=== PATIENT | female | born 1940 | race Caucasian/White ===

== ENCOUNTER 2016-08-02 20:21 | Inpatient (IN) | payer OTHER ==
--- NOTE | 2016-08-02 22:28 | PDOC ---
History of Present Illness <Salma Hendrickson - Last Filed: 08/03/16 02:03> - History of Present Illness Initial Comments: 08/02/16 22:51 The patient is a 76 year old female with a past medical hx of COPD, asthma, stomach ulcers, and hypercholesterolemia who presents to the ED complaining of shortness of breath for a few days. The patient reports a few days ago her symptoms started as a head cold, consisting of a cough, fatigue, chills, decrease in appetite, and congestion. She notes her cough is productive with yellow sputum. She reports her symptoms progressively worsened and now she is feeling short of breath. The patient reports her last COPD exacerbation was in September and she was admitted for one night. She reports she does not feel nearly as bad as she did during her last COPD exacerbation. She is not oxygen dependent. She had 1 episode of vomiting this morning. The patient denies chest pain, fever, sweats PCP: Dr. Ambriz <Jaimie Wright - Last Filed: 08/03/16 02:04> - General Chief Complaint: Respiratory Stated Complaint: DIFFICULTY BREATHING Time Seen by Provider: 08/02/16 20:54 Past History - Past Medical History Asthma: Yes Cancer: Yes GI Disorders: Yes (STOMACH ULCER) Hypercholesterolemia: Yes - Immunization History Immunization Up to Date: No - Psycho/Social/Smoking Cessation Hx Anxiety: (STRESS) Suicidal Ideation: No Smoking History: Former smoker Have you smoked in the past 12 months: No If you are a former smoker, when did you quit?: 30 yr Information on smoking cessation initiated: No Hx Alcohol Use: No Drug/Substance Use Hx: No Substance Use Type: None <Salma Hendrickson - Last Filed: 08/03/16 02:03> <Jaimie Wright - Last Filed: 08/03/16 02:04> - Past Medical History Allergies/Adverse Reactions: Allergies Allergy/AdvReac Type Severity Reaction Status Date / Time meperidine HCl [From Demerol] Allergy Verified 08/02/16 20:25 Home Medications: Ambulatory Orders Albuterol Sulfate Inhaler - [Ventolin HFA Inhaler -] 1 - 2 inh PO QID PRN #2 inhaler 12/08/15 Budesonide/Formeterol Fumarate [SYMBICORT 160/4.5mcg -] 1 puff IH BID #1 inhaler 12/08/15 Tiotropium [place] [Spiriva Respimat] 4 gm IH DAILY #1 mist.inhal 12/08/15 Zafirlukast 10 mg PO AM #30 tablet 12/08/15 Famotidine [Pepcid] 40 mg PO HS 08/02/16 Pravastatin Sodium 20 mg PO HS 08/02/16 Review of Systems - Review of Systems Able to Perform ROS?: Yes Comments:: 08/02/16 22:51 CONSTITUTIONAL: +Fatigue, chills, decreased appetite. Absent: fever, chills, diaphoresis, generalized weakness, malaise, loss of appetite HEENT: +Nasal congestion. Absent: rhinorrhea, throat pain, throat swelling, difficulty swallowing, mouth swelling, ear pain, eye pain, visual Changes CARDIOVASCULAR: Absent: chest pain, syncope, palpitations, irregular heart rate, lightheadedness , peripheral edema RESPIRATORY: +Shortness of breath, cough. Absent: cough, dyspnea with exertion, orthopnea, wheezing, stridor, hemoptysis GASTROINTESTINAL: Absent: abdominal pain, abdominal distension, nausea, vomiting, diarrhea, constipation, melena, hematochezia GENITOURINARY: Absent: dysuria, frequency, urgency, hesitancy, hematuria, flank pain, genital pain MUSCULOSKELETAL: Absent: myalgia, arthralgia, joint swelling SKIN: Absent: rash, itching, pallor NEUROLOGIC: Absent: headache, focal weakness or paresthesias, dizziness, unsteady gait, seizure, mental status changes, bladder or bowel incontinence PSYCHIATRIC: Absent: anxiety, depression, suicidal or homicidal ideation, hallucinations. <Jaimie Wright - Last Filed: 08/03/16 02:04> *Physical Exam - Vital Signs Last Vital Signs Temp Pulse Resp BP Pulse Ox 98.0 F 68 20 134/72 97 08/02/16 20:26 08/02/16 22:24 08/02/16 22:24 08/02/16 22:24 08/02/16 22:24 <Salma Hendrickson - Last Filed: 08/03/16 02:03> - Vital Signs Last Vital Signs Temp Pulse Resp BP Pulse Ox 98.0 F 68 20 134/72 97 08/02/16 20:26 08/02/16 22:24 08/02/16 22:24 08/02/16 22:24 08/02/16 22:24 - Physical Exam Comments: 08/02/16 22:51 GENERAL: Well developed, well nourished. Awake and alert. No acute distress. HEENT: Normocephalic, atraumatic. PERRLA, EOMI. No conjunctival pallor. Sclera are non- icteric. Moist mucous membranes. Oropharynx is clear. NECK: Supple. Full ROM. No JVD. Carotid pulses 2+ and symmetric, without bruits. No thyromegaly. No lymphadenopathy. CARDIOVASCULAR: Regular rate and rhythm. No murmurs, rubs, or gallops. Distal pulses are 2+ and symmetric. PULMONARY: +Scattered wheezing, hypoxic. No rales or rhonchi. ABDOMINAL: Soft. Non-tender. Non-distended. No rebound or guarding. No organomegaly. Normoactive bowel sounds. MUSCULOSKELETAL Normal range of motion at all joints. No bony deformities or tenderness. No CVA tenderness. EXTREMITIES: No cyanosis. No clubbing. No edema. No calf tenderness. SKIN: Warm and dry. Normal capillary refill. No rashes. No jaundice. NEUROLOGICAL: Alert, awake, appropriate. Cranial nerves 2-12 intact. No deficits to light touch and temperature in face, upper extremities and lower extremities. No motor deficits in the in face, upper extremities and lower extremities. PSYCHIATRIC: Cooperative. Good eye contact. Appropriate mood and affect. <Jaimie Wright - Last Filed: 08/03/16 02:04> Heart Score/ECG Review - ECG Impressions Comment:: 08/03/16 00:[address] Hendrickson Atrial-paced rhythm Rate of 67 bpm <Jaimie Wright - Last Filed: 08/03/16 02:04> ED Treatment Course - LABORATORY CBC & Chemistry Diagram: 08/02/16 23:10 08/02/16 23:10 - RADIOLOGY Radiology Studies Ordered: Category Date Time Status CHEST X-RAY PORTABLE* [RAD] Stat Radiology 08/02/16 20:50 Taken <Salma Hendrickson - Last Filed: 08/03/16 02:03> - LABORATORY CBC & Chemistry Diagram: 08/02/16 23:10 08/02/16 23:10 <Jaimie Wright - Last Filed: 08/03/16 02:04> *DC/Admit/Observation/Transfer - Discharge Dispostion Admit: Yes <Salma Hendrickson - Last Filed: 08/03/16 02:03> - Attestations Scribe Attestion: 08/02/16 22:51 Documentation prepared by Jaimie Wright, acting as manager medical affairs for Salma Hendrickson MD/DO. <Jaimie Wright - Last Filed: 08/03/16 02:04> Diagnosis at time of Disposition: Exacerbation of asthma, Hypoxia, Cough - Referrals Referrals: Bandar Ambriz MD [Primary Care Provider] -
[2016-08-02] MEDS ORDERED: ALBUTEROL SO4 2.5/IPRATROPIUM 0.5 INH SOL 3 ML VIAL.NEB. NEB ONE ×2 (22:29→22:39)
[2016-08-02] MEDS ORDERED: methylPREDNISolone NA SUCC 125 MG/2 ML VIAL IVPB ONE (22:29)
[2016-08-02] MEDS ORDERED: ALBUTEROL SO4 0.083% IH SOL 2.5 MG/3 ML VIAL.NEB. NEB ONE ×2 (22:29→22:38)
[2016-08-02] MEDS ORDERED: methylPREDNISolone NA SUCC 125 MG/2 ML VIAL ONE (22:39)
[2016-08-02 23:37] LABS: BASOPHIL 0.5 % (0-2.0); EOSINOPHIL 0.4 % (0-4.5); MCH 31.2 pg (25.7-33.7); MCHC 33.8 g/dl (32.0-36.0); MEAN CELL VOLUME 92.4 fl (80-96); NEUTROPHILS 71.3 % (42.8-82.8); PLATELET COUNT 164 K/MM3 (134-434); RDW 14.2 % (11.6-15.6); WHITE BLOOD COUNT 10.5 K/mm3 (4.0-10.0)
[2016-08-03 00:17] LABS: INR 1.13 (0.82-1.09); PROTHROMBIN TIME (PATIENT) 12.5 SEC (9.98-11.88)
[2016-08-03 00:30] LABS: ALBUMIN 3.7 g/dl (3.4-5.0); ANION GAP 13 (8-16); BILIRUBIN,TOTAL 0.6 mg/dL (0.2-1.0); CO2 28 mmol/L (21-32); CREATININE 0.9 mg/dL (0.55-1.02); GLUCOSE,RANDOM 94 mg/dL (74-106); SGOT/AST 32 U/L (15-37); SGPT/ALT 46 U/L (12-78); TOT PROT 7.2 g/dl (6.4-8.2)
[2016-08-03 00:33] LABS: ALK PHOS 108 U/L (45-117)
[2016-08-03 00:41] LABS: TROPONIN I < 0.02 ng/ml (0.00-0.05)
[2016-08-03] MEDS ORDERED: ALBUTEROL SO4 2.5/IPRATROPIUM 0.5 INH SOL 3 ML VIAL.NEB. NEB ONE ×3 (01:50→02:41)
[2016-08-03] MEDS ORDERED: AZITHROMYCIN IVPB 500 MG in DEXTROSE 5%-WATER - 250 ML IVPB ONE (01:52)
[2016-08-03 02:02] LABS: ALBUMIN 3.5 g/dl (3.4-5.0); ANION GAP 12 (8-16); BILIRUBIN,TOTAL 0.8 mg/dL (0.2-1.0); CALCIUM 8.6 mg/dL (8.5-10.1); CO2 27 mmol/L (21-32); CREATININE 0.9 mg/dL (0.55-1.02); GLUCOSE,RANDOM 135 mg/dL (74-106); SGOT/AST 25 U/L (15-37); SGPT/ALT 43 U/L (12-78); TOT PROT 6.7 g/dl (6.4-8.2)
[2016-08-03 02:03] LABS: ALK PHOS 99 U/L (45-117)
[2016-08-03] MEDS ORDERED: AZITHROMYCIN IVPB 250 ML IVPB ONE (02:41)
--- NOTE | 2016-08-03 05:41 | HP ---
CHIEF COMPLAINT: cold-like symptoms PCP: Dr. Ambriz HISTORY OF PRESENT ILLNESS: 76 y/o F w/PMH of COPD, asthma, stomach ulcers, HLD, cancer presents to the ER because her daughter felt like the pt was not breathing well. Pt reports cold like symptoms over the last week that were slowly improving. She had cough with yellow sputum production and congestion in her nose. She took mucinex which helped and she remained active throughout the week including dancing and doing community work. She felt that she was very sluggish today and states she's been having chills since earlier this week. She denies any SOB to me and she also denies CP, abd pain, dysuria, fevers, palpitations, loss of consciousness, diarrhea, constipation. She denies using her rescue inhaler more than usual and takes her medications as prescribed. Pt's O2 was removed at 3:45 am and she continued to saturate at 91-94%. ER course was notable for: (1) solumedrol, duo-nebs x3, azithromycin (2) (3) PAST MEDICAL HISTORY: COPD, asthma, stomach ulcers, HLD, cancer (56 years ago in her R leg near knee, cannot remember the type) PAST SURGICAL HISTORY: R knee replacement 56 years ago due to cancer Social History: Smoking: former smoker, quit 40 years ago, smoked 1ppd for 10-15 years Alcohol: rare Drugs: denies Family History: Father:Angina; Skin cancer throughout family Allergies meperidine HCl [From Demerol] Allergy (Verified 08/02/16 20:25) HOME MEDICATIONS: Home Medications Medication Instructions Recorded Albuterol Sulfate Inhaler - 1 - 2 inh PO QID PRN #2 inhaler 12/08/15 [Ventolin HFA Inhaler -] Budesonide/Formeterol Fumarate 1 puff IH BID #1 inhaler 12/08/15 [SYMBICORT 160/4.5mcg -] Tiotropium [place] [Spiriva 4 gm IH DAILY #1 mist.inhal 12/08/15 Respimat] Zafirlukast 10 mg PO AM #30 tablet 12/08/15 Famotidine [Pepcid] 40 mg PO HS 08/02/16 Pravastatin Sodium 20 mg PO HS 08/02/16 REVIEW OF SYSTEMS CONSTITUTIONAL: chills, generalized weakness Absent: fever, diaphoresis, malaise, loss of appetite, weight change HEENT: nasal congestion Absent: rhinorrhea, throat pain, throat swelling, difficulty swallowing, mouth swelling, ear pain, eye pain, visual changes CARDIOVASCULAR: Absent: chest pain, syncope, palpitations, irregular heart rate, lightheadedness , peripheral edema RESPIRATORY: cough Absent: shortness of breath, dyspnea with exertion, orthopnea, wheezing, stridor , hemoptysis GASTROINTESTINAL: Absent: abdominal pain, abdominal distension, nausea, vomiting, diarrhea, constipation, melena, hematochezia GENITOURINARY: Absent: dysuria, frequency, urgency, hesitancy, hematuria, flank pain, genital pain MUSCULOSKELETAL: Absent: myalgia, arthralgia, joint swelling, back pain, neck pain SKIN: Absent: rash, itching, pallor HEMATOLOGIC/IMMUNOLOGIC: Absent: easy bleeding, easy bruising, lymphadenopathy, frequent infections ENDOCRINE: Absent: unexplained weight gain, unexplained weight loss, heat intolerance, cold intolerance NEUROLOGIC: Absent: headache, focal weakness or paresthesias, dizziness, unsteady gait, seizure, mental status changes, bladder or bowel incontinence PSYCHIATRIC: Absent: anxiety, depression, suicidal or homicidal ideation, hallucinations. Vital Signs Temperature 98.0 F 08/02/16 20:26 Pulse Rate 68 08/02/16 22:24 Respiratory Rate 20 08/02/16 22:24 Blood Pressure 134/72 08/02/16 22:24 O2 Sat by Pulse Oximetry (%) 97 08/02/16 22:24 PHYSICAL EXAMINATION GENERAL: Awake, alert, and fully oriented, in no acute distress. HEAD: Normal with no signs of trauma. EYES: extraocular movements intact, sclera anicteric, conjunctiva clear. No lid lag. EARS, NOSE, THROAT: Ears normal, nares patent, Moist mucous membranes. NECK: Normal range of motion LUNGS: mild wheezing on R lung HEART: some dropped beats, normal S1 and S2 without murmur, rub or gallop. ABDOMEN: Soft, nontender, not distended, normoactive bowel sounds, no guarding, no rebound, no masses. No hepatomegaly or splenomegaly. MUSCULOSKELETAL: Normal range of motion at all joints. No bony deformities or tenderness. No CVA tenderness. UPPER EXTREMITIES: 2+ pulses, warm, well-perfused. No cyanosis. No clubbing. No peripheral edema. LOWER EXTREMITIES: 2+ pulses, warm, well-perfused. No calf tenderness. No peripheral edema. NEUROLOGICAL: Cranial nerves II-XII intact. Normal speech. Normal gait. PSYCHIATRIC: Cooperative. Good eye contact. Appropriate mood and affect. SKIN: Warm, dry, normal turgor, no rashes or lesions noted, normal capillary refill. CBCD WBC 10.5 K/mm3 (4.0-10.0) H D 08/02/16 23:10 RBC 4.86 M/mm3 (3.60-5.2) 08/02/16 23:10 Hgb 15.1 GM/dL (10.7-15.3) 08/02/16 23:10 Hct 44.9 % (32.4-45.2) 08/02/16 23:10 MCV 92.4 fl (80-96) 08/02/16 23:10 MCHC 33.8 g/dl (32.0-36.0) 08/02/16 23:10 RDW 14.2 % (11.6-15.6) 08/02/16 23:10 Plt Count 164 K/MM3 (134-434) 08/02/16 23:10 MPV 10.0 fl (7.5-11.1) 08/02/16 23:10 CMP Sodium 136 mmol/L (136-145) 08/03/16 01:00 Potassium 4.1 mmol/L (3.5-5.1) 08/03/16 01:00 Chloride 97 mmol/L (98-107) L 08/03/16 01:00 Carbon Dioxide 27 mmol/L (21-32) 08/03/16 01:00 Anion Gap 12 (8-16) 08/03/16 01:00 BUN 11 mg/dL (7-18) 08/03/16 01:00 Creatinine 0.9 mg/dL (0.55-1.02) 08/03/16 01:00 Creat Clearance w eGFR > 60 (>60) 08/03/16 01:00 Random Glucose 135 mg/dL (74-106) H D 08/03/16 01:00 Calcium 8.6 mg/dL (8.5-10.1) 08/03/16 01:00 Total Bilirubin 0.8 mg/dL (0.2-1.0) D 08/03/16 01:00 AST 25 U/L (15-37) D 08/03/16 01:00 ALT 43 U/L (12-78) 08/03/16 01:00 Alkaline Phosphatase 99 U/L (45-117) 08/03/16 01:00 Total Protein 6.7 g/dl (6.4-8.2) 08/03/16 01:00 Albumin 3.5 g/dl (3.4-5.0) 08/03/16 01:00 CARDIAC ENZYMES Creatine Kinase 77 IU/L (26-192) 08/02/16 22:52 Troponin I < 0.02 ng/ml (0.00-0.05) 08/02/16 22:52 Imaging: CXR: no acute pathology noted. Active Medications Albuterol/Ipratropium (Duoneb -) 1 amp NEB Q4H PRN PRN Reason: SHORTNESS OF BREATH Budesonide/Formoterol Fumarate (Symbicort 160/4.5mcg -) 1 puff IH BID PAULA Methylprednisolone Sodium Succinate (Solu-Medrol -) 60 mg IVPB ONCE ONE Stop: 08/03/16 06:01 Non-Formulary Medication (Famotidine [Pepcid]) 40 mg PO HS PAULA Non-Formulary Medication (Pravastatin Sodium [Pravastatin Sodium]) 20 mg PO HS PAULA Non-Formulary Medication (Zafirlukast [Zafirlukast]) 10 mg PO AM [facility] ASSESSMENT/PLAN: 76 y/o F w/PMH of COPD, asthma, stomach ulcers, HLD, cancer presents to the ER with shortness of breath. Monitor in obs for COPD exacerbation. -COPD exacerbation, hypoxia -received 125 solumedrol, duo-nebs x3, azithro x1 in ER -one dose of solumedrol 60 mg in AM -duonebs q4h prn -no abx for now; flu negative -pulm consult - Dr. Ambriz -pt is clinically improved after solumedrol -c/w home meds -hypoxia resolved after duonebs and solumedrol in ed -Leukocytosis -Likely reactive to COPD exacerbation, no signs of infection currently -Asthma -c/w zafirlukast -Stomach ulcers -c/w pepcid 40 mg po qhs -HLD -c/w pravastatin 20 mg po qhs -DVT ppx -SCDs -FEN -No fluids -Electrolytes: hypochloremia, continue to monitor, improving -Regular diet -Dispo: -Monitor in obs Problem List - Problem (1) Acute exacerbation of COPD with asthma Code(s): J44.1 - CHRONIC OBSTRUCTIVE PULMONARY DISEASE W (ACUTE) EXACERBATION J45.901 - UNSPECIFIED ASTHMA WITH (ACUTE) EXACERBATION (2) Cough Code(s): R05 - COUGH (3) Exacerbation of asthma Code(s): J45.901 - UNSPECIFIED ASTHMA WITH (ACUTE) EXACERBATION (4) Hypoxia Code(s): R09.02 - HYPOXEMIA Visit type - Emergency Visit Emergency Visit: Yes ED Registration Date: 08/03/16 Care time: The patient presented to the Emergency Department on the above date and was hospitalized for further evaluation of their emergent condition. - New Patient This patient is new to me today: Yes Date on this admission: 08/03/16 - Critical Care Critical Care patient: No
[2016-08-03] MEDS ORDERED: ALBUTEROL SO4 2.5/IPRATROPIUM 0.5 INH SOL 3 ML VIAL.NEB. NEB PRN (05:51)
--- NOTE | 2016-08-03 05:54 | PN ---
<Thomas Campbell - Last Filed: 08/03/16 06:26> Teaching Attending Note ATTENDING PHYSICIAN STATEMENT I saw and evaluated the patient. I reviewed the resident's note and discussed the case with the resident. I agree with the resident's findings and plan as documented. SUBJECTIVE: The patient is a 76 year old female with a past medical history of COPD, asthma , stomach ulcers, and hypercholesterolemia who presented to the Emergency Department for further evaluation of shortness of breath for a few days. The patient reported that, a few days ago her symptoms started as a head cold, productive cough with yellow sputum, fatigue, chills, decrease in appetite, and congestion. She noted her cough is productive with yellow-green sputum. She stated her symptoms progressively worsened and she began feeling short of breath. The patient reported her last COPD exacerbation was in September 2015 and she was admitted for one night. She noted that she does not feel nearly as bad as she did during her last COPD exacerbation. She is not oxygen dependent. She had 1 episode of vomiting this morning. The patient denied chest pain, fever, sweats. PCP: Dr. Ambriz PAST MEDICAL HISTORY: COPD, asthma, stomach ulcers, hypercholesterolemia PAST SURGICAL HISTORY: No significant history reported FAMILY HISTORY: No pertinent history reported SOCIAL HISTORY: Former smoker 1ppd for 10 years (quit 40 years ago) MEDICATIONS: Reviewed ALLERGIES: As per nursing notes OBJECTIVE: Vital Signs: Last Vital Signs Temp Pulse Resp BP Pulse Ox 98.0 F 68 20 134/72 97 08/02/16 20:26 08/02/16 22:24 08/02/16 22:24 08/02/16 22:24 08/02/16 22:24 Physical Exam: GENERAL: Awake, alert, and fully oriented, in no acute distress HEENT: Atraumatic. PERRLA, EOMI. Moist mucosa. No JVD LUNGS: (+) mild wheezing right lower lung. No distress, speaks full sentences, clear to auscultation bilaterally HEART: Regular rate irregular rhythm, normal S1 and S2, no murmurs, rubs or gallops, peripheral pulses normal and equal bilaterally. ABDOMEN: Soft, nontender, normoactive bowel sounds. No guarding, no rebound. No masses EXTREMITIES: Normal inspection, Normal range of motion, no edema. No clubbing or cyanosis. NEUROLOGICAL: Cranial nerves II through XII grossly intact. Normal speech, normal gait, no focal sensorimotor deficits SKIN: Warm, Dry, normal turgor, no rashes or lesions noted. Labs: CBCD WBC 10.5 K/mm3 (4.0-10.0) H D 08/02/16 23:10 RBC 4.86 M/mm3 (3.60-5.2) 08/02/16 23:10 Hgb 15.1 GM/dL (10.7-15.3) 08/02/16 23:10 Hct 44.9 % (32.4-45.2) 08/02/16 23:10 MCV 92.4 fl (80-96) 08/02/16 23:10 MCHC 33.8 g/dl (32.0-36.0) 08/02/16 23:10 RDW 14.2 % (11.6-15.6) 08/02/16 23:10 Plt Count 164 K/MM3 (134-434) 08/02/16 23:10 MPV 10.0 fl (7.5-11.1) 08/02/16 23:10 CMP Sodium 136 mmol/L (136-145) 08/03/16 01:00 Potassium 4.1 mmol/L (3.5-5.1) 08/03/16 01:00 Chloride 97 mmol/L (98-107) L 08/03/16 01:00 Carbon Dioxide 27 mmol/L (21-32) 08/03/16 01:00 Anion Gap 12 (8-16) 08/03/16 01:00 BUN 11 mg/dL (7-18) 08/03/16 01:00 Creatinine 0.9 mg/dL (0.55-1.02) 08/03/16 01:00 Creat Clearance w eGFR > 60 (>60) 08/03/16 01:00 Calcium 8.6 mg/dL (8.5-10.1) 08/03/16 01:00 Total Bilirubin 0.8 mg/dL (0.2-1.0) D 08/03/16 01:00 AST 25 U/L (15-37) D 08/03/16 01:00 ALT 43 U/L (12-78) 08/03/16 01:00 Alkaline Phosphatase 99 U/L (45-117) 08/03/16 01:00 Total Protein 6.7 g/dl (6.4-8.2) 08/03/16 01:00 Albumin 3.5 g/dl (3.4-5.0) 08/03/16 01:00 Imaging: Chest X-ray Impression: No official read. No acute findings. ASSESSMENT AND PLAN: The patient is a 76 year old female with a past medical history of COPD, asthma , stomach ulcers, and hypercholesterolemia who presented to the Emergency Department for further evaluation of shortness of breath for a few days. 1. Acute exacerbation of asthma/COPD -IV solumedrol 60 mg in AM -Duoneb Q4 PRN -Zithromax 500 mg in ED -Pulmonary consult Admit to observation. Documentation prepared by Thomas Campbell, acting as medical secretary teacher for Dr. Toñito Christina MD. <Toñito Christina - Last Filed: 08/03/16 06:44> Teaching Attending Note Name of Resident: Theron Heath ATTENDING PHYSICIAN STATEMENT I saw and evaluated the patient. I reviewed the resident's note and discussed the case with the resident. I agree with the resident's findings and plan as documented.
[2016-08-03] MEDS ORDERED: methylPREDNISolone NA SUCC 40 MG/1 ML VIAL IVPB ONE (06:00)
[2016-08-03] MEDS ORDERED: HYDROCORTISONE SOD SUCCINATE 2 ML ONE (07:07)
[2016-08-03] MEDS: ZAFIRLUKAST 10 MG PO SCH (07:08)
[2016-08-03 08:38] LABS: BASOPHIL 0.2 % (0-2.0); MCH 30.6 pg (25.7-33.7); MCHC 33.4 g/dl (32.0-36.0); MEAN CELL VOLUME 91.7 fl (80-96); PLATELET COUNT 142 K/MM3 (134-434); RDW 14.1 % (11.6-15.6); WHITE BLOOD COUNT 9.5 K/mm3 (4.0-10.0)
[2016-08-03 09:06] LABS: CALCIUM 8.4 mg/dL (8.5-10.1); CREATININE 1.2 mg/dL (0.55-1.02)
[2016-08-03 09:59] VITALS: BMI 34.0
[2016-08-03] MEDS ORDERED: SODIUM CHLORIDE 1,000 ML IV SCH (11:00)
[2016-08-03] MEDS: BUDESONIDE/FORMETEROL FUMARATE 160/4.5 mcg INHALER IH SCH ×2 (11:49→22:56)
--- NOTE | 2016-08-03 13:24 | EKG ---
Test Reason : Blood Pressure : / mmHG Vent. Rate : 067 BPM Atrial Rate : 067 BPM P-R Int : 174 ms QRS Dur : 090 ms QT Int : 396 ms P-R-T Axes : 033 -16 034 degrees QTc Int : 418 ms POOR DATA QUALITY, INTERPRETATION MAY BE ADVERSELY AFFECTED Atrial-paced rhythm MINIMAL VOLTAGE CRITERIA FOR LVH, MAY BE NORMAL VARIANT ABNORMAL ECG WHEN COMPARED WITH ECG OF 07-DEC-2015 21:17, NO SIGNIFICANT CHANGE WAS FOUND Confirmed by ANUPAM CAGLE MD ([id number]) on 08/03/2016 1:23:59 PM Referred By: Confirmed By:ANUPAM CAGLE MD
--- NOTE | 2016-08-03 14:35 | PN ---
Physical Exam: SUBJECTIVE: Patient seen and examined. She denies chest pain. Still feels short of breath with minimal exertion. OBJECTIVE: accessory muscle use, on 2 liter of nasal cannula expiratory wheezing on bilateral lung talbot appears weak Vital Signs Period Temp Pulse Resp BP Sys/Muse Pulse Ox Last 24 Hr 98.5 F-98.9 F 64-88 17-22 115-127/54-71 96-97 GENERAL: The patient is awake, alert, and fully oriented, in mild respiratory distress secondary to acute exacb. HEAD: Normal with no signs of trauma. EYES: PERRL, extraocular movements intact, sclera anicteric, conjunctiva clear. No ptosis. ENT: Ears normal, nares patent, oropharynx clear without exudates, moist mucous membranes. NECK: Trachea midline, full range of motion, supple. LUNGS: accessory muscle use, expiratory wheezing on bilateral lung talbot HEART: Regular rate and rhythm, S1, S2 without murmur, rub or gallop. ABDOMEN: Soft, nontender, nondistended, normoactive bowel sounds, no guarding, no rebound, no hepatosplenomegaly, no masses. EXTREMITIES: 2+ pulses, warm, well-perfused, no edema. NEUROLOGICAL: Cranial nerves II through XII grossly intact. Normal speech, gait not observed. PSYCH: Normal mood, normal affect. SKIN: Warm, dry, normal turgor, no rashes or lesions noted Laboratory Results - last 24 hr 08/03/16 08/03/16 08:24 08:24 WBC 9.5 RBC 4.42 Hgb 13.5 D Hct 40.5 MCV 91.7 MCHC 33.4 RDW 14.1 Plt Count 142 MPV 9.0 Neutrophils % 91.0 H D Lymphocytes % 6.0 L D Monocytes % 2.8 L Eosinophils % 0.0 D Basophils % 0.2 Sodium 130 L Potassium 4.0 Chloride 94 L Carbon Dioxide 22 Anion Gap 14 BUN 14 D Creatinine 1.2 H D Random Glucose 192 H D Calcium 8.4 L Active Medications Generic Name Dose Route Start Last Admin Trade Name Freq PRN Reason Stop Dose Admin Albuterol/Ipratropium 1 amp 08/03/16 05:51 Duoneb - NEB Q4H PRN SHORTNESS OF BREATH Atorvastatin Calcium 10 mg 08/03/16 22:00 Lipitor - PO HS PAULA Budesonide/Formoterol Fumarate 1 puff 08/03/16 10:00 08/03/16 11:49 Symbicort 160/4.5mcg - IH 1 inh BID PAULA Administration Sodium Chloride 1,000 mls @ 50 mls/hr 08/03/16 11:00 08/03/16 11:57 Normal Saline - IV 08/04/16 10:48 50 mls/hr ASDIR PAULA Administration Non-Formulary Medication 10 mg 08/03/16 07:00 08/03/16 07:08 Zafirlukast [Zafirlukast] PO 10 mg AM PAULA Administration Ranitidine HCl 300 mg 08/03/16 22:00 Zantac - PO HS PAULA ASSESSMENT/PLAN: Patient is a 76 year old female with a significant past medical history of COPD , asthma, stomach ulcers, hypercholesterolemia. She presents to the ED on 2016 complaining of shortness of breath with any exertion that progressively worsened. she also reports a productive cought with yellow sputum. As per the patient, her last COPD exacerbation was in September 2015. She is not home oxygen dependent. The patient denies chest pain, fever, sweats, n/v/d. She stats she feels weak. Imaging: Chest Xray 08/02/2016 - Apical lordotic projection, clear lungs, normal mediastinum, double lead PM and no signs of acute proceses Pulmonary: COPD/Asthma exacerbation with hypoxia - acute on chronic Assessment/Plan: In ED she received Solumedrol 125mg x 1, duonebs x 3 and Azithromycin Now on solumedrol 40mg q6 On albuterol/Ipra duonebs q4 scheduled On Azithromycin and Rocephin On 3 liters of oxygen On Symbicort and Zafirlukast Some wheezing on my exam, Solumedrol ordered by pulmonary Incentive spirometer Pulmonary consult with Dr. Ambriz Hematology: Leukocytosis - resolved Assessment/Plan: monitor GI: Stomach Ulcers Assessment/Plan: will start on protonix while on steroids F.E.N. Fluids: NS @ 50cc/hr x 1 liter for hyponatremia Electrolytes: hyponatremia Nutrition: regular diet DVT: SCDs, ambulation GI: Protonix disposition: Pre and post oxygen respiratory read prior to discharge. Full Code. Visit type - Emergency Visit Emergency Visit: Yes ED Registration Date: 08/03/16 Care time: The patient presented to the Emergency Department on the above date and was hospitalized for further evaluation of their emergent condition. - New Patient This patient is new to me today: Yes Date on this admission: 08/03/16 - Critical Care Critical Care patient: No - Discharge Referral Referred to [facility] No
--- NOTE | 2016-08-03 14:46 | CON.PULM ---
Consult Consult Specialty:: PULMONARY Referred by:: BENNY Reason for Consultation:: COUGH/WHEEZE/SOB - History of Present Illness Chief Complaint: COUGH/WHEEZE/SOB History of Present Illness: 76 FEMALE WELL KNOWN BY ME. H/O COPD/PUD/HPL PRESENTS TO ER WITH COUGH/SOB/WHEEZE/FEVER AND LETHARGY.PATIENT STATES SHE WAS AT [employer] AND DIDNT FEEL WELL. AFTER MASS SHE WENT HOME AND BECAME LETHARGIC AND DECIDED TO COME TO ER. - History Source History Provided By: Patient, Medical Record Limitations to Obtaining History: No Limitations - Past Medical History CHILD CARE DIRECTOR: No: Alzheimer's Cardio/Vascular: No: AFIB Pulmonary: Yes: Asthma, COPD. No: O2 Dependent Gastrointestinal: No: Ascites Hepatobiliary: No: Cirrhosis Renal/: No: Renal Failure Reproductive: Yes: Postmenopausal Heme/Onc: No: Anemia Infectious Disease: No: AIDS Psych: No: Addictions Musculoskeletal: No: Bursitis Rheumatology: No: Fibromyalgia - Alcohol/Substance Use Hx Alcohol Use: No - Smoking History Smoking history: Former smoker Have you smoked in the past 12 months: No If you are a former smoker, when did you quit?: 30 yr Home Medications - Allergies Allergies/Adverse Reactions: Allergies Allergy/AdvReac Type Severity Reaction Status Date / Time meperidine HCl [From Demerol] Allergy Verified 08/02/16 20:25 - Home Medications Home Medications: Ambulatory Orders Albuterol Sulfate Inhaler - [Ventolin HFA Inhaler -] 1 - 2 inh PO QID PRN #2 inhaler 12/08/15 Budesonide/Formeterol Fumarate [SYMBICORT 160/4.5mcg -] 1 puff IH BID #1 inhaler 12/08/15 Tiotropium [place] [Spiriva Respimat] 4 gm IH DAILY #1 mist.inhal 12/08/15 Zafirlukast 10 mg PO AM #30 tablet 12/08/15 Famotidine [Pepcid] 40 mg PO HS 08/02/16 Pravastatin Sodium 20 mg PO HS 08/02/16 Family Disease History - Family Disease History Family History: Unremarkable Review of Systems - Review of Systems Cardiovascular: denies: Chest Pain Respiratory: reports: Cough, Exercise Intolerance, SOB on Exertion, Wheezing. denies: Hemoptysis, Orthopnea Gastrointestinal: reports: No Symptoms Genitourinary: reports: No Symptoms Physical Exam Vital Sings: Vital Signs Temperature 98.5 F 08/03/16 13:45 Pulse Rate 78 08/03/16 13:45 Respiratory Rate 22 08/03/16 13:45 Blood Pressure 115/54 08/03/16 13:45 O2 Sat by Pulse Oximetry (%) 96 08/03/16 09:46 Constitutional: Yes: Calm Eyes: Yes: EOM Intact HENT: Yes: Normocephalic Neck: Yes: Trachea Midline Cardiovascular: Yes: Regular Rate and Rhythm Respiratory: Yes: Rales, Rhonchi, Wheezes Gastrointestinal: Yes: Normal Bowel Sounds Edema: No Neurological: Yes: Alert Labs: CBC, BMP 08/03/16 08:24 08/03/16 08:24 REST REVIEWED Imaging - Results Chest X-ray: Image Reviewed Assessment/Plan LIKELY ACUTE ASTHMATIC BRONCHITIS COPD PUD HPL WILL START MEDROL Q6 ANTIBIOTICS ICS/LABA NEO/ANTICHOLINERGIC DAILY PEAK FLOW/O2 SUPPLEMENTATION WILL FOLLOW THANK YOU Luiz BAILEY MD
[2016-08-03] MEDS: methylPREDNISolone NA SUCC 40 MG/1 ML VIAL IVPB SCH ×2 (16:58→22:56)
[2016-08-03] MEDS: CEFTRIAXONE 50 ML IVPB SCH (16:58)
[2016-08-03] MEDS: PANTOPRAZOLE 40 MG TABLET (FP) PO SCH (16:58)
[2016-08-03] MEDS: ALBUTEROL SO4 2.5/IPRATROPIUM 0.5 INH SOL 3 ML VIAL.NEB. NEB SCH ×2 (18:39→22:35)
[2016-08-03] MEDS ORDERED: PT OWN MED DRAWER 7, Y5N ONE (19:13)
[2016-08-03] MEDS ORDERED: RANITIDINE HCL 150 MG TABLET (FP) PO SCH (22:00)
[2016-08-03] MEDS: ATORVASTATIN CA 10 MG TABLET (FP) PO SCH (22:54)
[2016-08-04] MEDS: methylPREDNISolone NA SUCC 40 MG/1 ML VIAL IVPB SCH ×4 (02:51→22:26)
[2016-08-04] MEDS: ALBUTEROL SO4 2.5/IPRATROPIUM 0.5 INH SOL 3 ML VIAL.NEB. NEB SCH ×5 (07:06→22:37)
[2016-08-04 08:06] LABS: BASOPHIL 0.2 % (0-2.0); MCH 30.6 pg (25.7-33.7); MCHC 33.4 g/dl (32.0-36.0); MEAN CELL VOLUME 91.5 fl (80-96); NEUTROPHILS 88.7 % (42.8-82.8); PLATELET COUNT 142 K/MM3 (134-434); RDW 13.9 % (11.6-15.6); WHITE BLOOD COUNT 15.4 K/mm3 (4.0-10.0)
[2016-08-04 08:45] LABS: ALBUMIN 3.3 g/dl (3.4-5.0); ALK PHOS 84 U/L (45-117); ANION GAP 11 (8-16); BILIRUBIN,TOTAL 0.4 mg/dL (0.2-1.0); CALCIUM 9.1 mg/dL (8.5-10.1); CO2 26 mmol/L (21-32); CREATININE 0.8 mg/dL (0.55-1.02); GLUCOSE,RANDOM 143 mg/dL (74-106); MAGNESIUM 2.3 mg/dL (1.8-2.4); PHOSPHOROUS 3.2 mg/dL (2.5-4.9); SGOT/AST 32 U/L (15-37); SGPT/ALT 47 U/L (12-78); TOT PROT 6.5 g/dl (6.4-8.2)
[2016-08-04] MEDS: PANTOPRAZOLE 40 MG TABLET (FP) PO SCH (10:09)
[2016-08-04] MEDS: BUDESONIDE/FORMETEROL FUMARATE 160/4.5 mcg INHALER IH SCH ×2 (10:30→22:26)
[2016-08-04] MEDS: CEFTRIAXONE 50 ML IVPB SCH (10:30)
[2016-08-04] MEDS: AZITHROMYCIN IVPB 250 ML IVPB SCH (11:10)
--- NOTE | 2016-08-04 11:21 | PN ---
Physical Exam: SUBJECTIVE: Patient seen and examined. States she is feeling "shaky" which she thinks is due to the steroids. Has not been overly SOB, but does use supplemental oxygen intermittently. Feels throat is very dry and hoarse. OBJECTIVE: Vital Signs Period Temp Pulse Resp BP Sys/Muse Pulse Ox Last 24 Hr 98.1 F-98.5 F 60-81 16-22 112-126/54-69 96-96 GENERAL: The patient is awake, alert, and fully oriented, in mild distress. Appears tremulous. HEAD: Normal with no signs of trauma. EYES: PERRL, extraocular movements intact, sclera anicteric, conjunctiva clear. No ptosis. ENT: Ears normal, nares patent, oropharynx clear without exudates, moist mucous membranes. Hoarse voice. NECK: Trachea midline, full range of motion, supple. LUNGS: Breath sounds equal. Scattered wheezes and crackles throughout. HEART: Regular rate and rhythm, S1, S2 without murmur, rub or gallop. ABDOMEN: Soft, nontender, nondistended, normoactive bowel sounds, no guarding, no rebound, no hepatosplenomegaly, no masses. EXTREMITIES: 2+ pulses, warm, well-perfused, no edema. NEUROLOGICAL: Cranial nerves II through XII grossly intact. Normal speech, gait not observed. PSYCH: Normal mood, normal affect. SKIN: Warm, dry, normal turgor, no rashes or lesions noted Laboratory Results - last 24 hr 08/04/16 08/04/16 05:33 05:33 WBC 15.4 H D RBC 4.16 Hgb 12.7 Hct 38.0 MCV 91.5 MCHC 33.4 RDW 13.9 Plt Count 142 MPV 10.0 D Neutrophils % 88.7 H Lymphocytes % 6.5 L Monocytes % 4.6 Eosinophils % 0.0 Basophils % 0.2 Sodium 136 Potassium 4.9 D Chloride 99 Carbon Dioxide 26 Anion Gap 11 BUN 15 Creatinine 0.8 D Creat Clearance w eGFR > 60 Random Glucose 143 H D Calcium 9.1 Phosphorus 3.2 Magnesium 2.3 Total Bilirubin 0.4 D AST 32 D ALT 47 Alkaline Phosphatase 84 Total Protein 6.5 Albumin 3.3 L Active Medications Generic Name Dose Route Start Last Admin Trade Name Freq PRN Reason Stop Dose Admin Albuterol/Ipratropium 1 amp 08/03/16 18:00 08/04/16 10:07 Duoneb - NEB 1 amp Q4HWA PAULA Administration Atorvastatin Calcium 10 mg 08/03/16 22:00 08/03/16 22:54 Lipitor - PO 10 mg HS PAULA Administration Budesonide/Formoterol Fumarate 1 puff 08/03/16 10:00 08/04/16 10:30 Symbicort 160/4.5mcg - IH 1 puff BID PAULA Administration Ceftriaxone Sodium 50 mls @ 100 mls/hr 08/03/16 15:00 08/04/16 10:30 Rocephin 1gm Ivpb (Pre-Docked) IVPB 100 mls/hr DAILY PAULA Administration Azithromycin 250 mls @ 250 mls/hr 08/04/16 10:00 08/04/16 11:10 Zithromax 500mg Ivpb (Pre-Docked) IVPB 250 mls/hr DAILY PAULA Administration Methylprednisolone Sodium Succinate 40 mg 08/03/16 15:00 08/04/16 10:09 Solu-Medrol - IVPB 40 mg Q6H-IV PAULA Administration Zafirlukast 10mg (Pt 1 each 08/04/16 11:09 's Own, Non Form) PO AM PAULA Pantoprazole Sodium 40 mg 08/03/16 15:00 08/04/16 10:09 Protonix - PO 40 mg DAILY PAULA Administration ASSESSMENT/PLAN: 76 year-old female with a PMH of HLD, symptomatic bradycardia s/p PPM (2016), asthma/COPD, PUD, and cancer (40 years ago cannot recall type). Placed on observation for asthma/COPD exacerbation. 1. Acute COPD/asthma exacerbation - Continue Duonebs, Symbicort, Zafirlukast - IV steroids - empiric ceftriaxone (day 2), azithromycin (day 1) - Incentive spirometry - Supplemental O2 as needed - Phenol spray PRN for hoarseness/dryness - pre/post testing tomorrow 2. Leukocystosis --likely from steroids but cannot r/o infectious etiology --antibiotics as above 3. Gastric ulcers - No current issues - Continue Protonix 4. Hyperlipidemia - Start Lipitor 10mg (formulary equivalent for home Pravachol) F/E/N Fluids: PO intake adequate Electrolytes: monitor and replace as needed Nutrition: sodium-controlled diet DVT Prophylaxis: lovenox, oob, ambulation PT evaluation ordered Dispo: continues to require inpatient care. Full Code. Visit type - Emergency Visit Emergency Visit: Yes ED Registration Date: 08/03/16 Care time: The patient presented to the Emergency Department on the above date and was hospitalized for further evaluation of their emergent condition. - New Patient This patient is new to me today: No - Critical Care Critical Care patient: No
[2016-08-04] MEDS: [UNRECOGNIZED DRUG - REMARK] PO SCH (11:22)
[2016-08-04] MEDS: ZAFIRLUKAST 10 MG PO SCH (11:27)
--- NOTE | 2016-08-04 12:07 | PN ---
Progress Note (short form) - Note Progress Note: Still with congested cough, wheezing, and sore throat. Intake & Output 08/01/16 08/02/16 08/03/16 08/04/16 23:59 23:59 23:59 23:59 Intake Total 1485 230 Balance 1485 230 Weight 194 lb 192 lb 1.6 oz Last Vital Signs Temp Pulse Resp BP Pulse Ox 98.5 F 94 H 20 140/71 96 08/04/16 10:00 08/04/16 10:00 08/04/16 10:00 08/04/16 10:00 08/04/16 05:29 Active Medications Albuterol/Ipratropium (Duoneb -) 1 amp NEB Q4HWA [facility] Last Admin: 08/04/16 10:07 Dose: 1 amp Atorvastatin Calcium (Lipitor -) 10 mg PO HS [facility] Last Admin: 08/03/16 22:54 Dose: 10 mg Budesonide/Formoterol Fumarate (Symbicort 160/4.5mcg -) 1 puff IH BID [facility] Last Admin: 08/04/16 10:30 Dose: 1 puff Ceftriaxone Sodium (Rocephin 1gm Ivpb (Pre-Docked)) 50 mls @ 100 mls/hr IVPB DAILY [facility] Last Admin: 08/04/16 10:30 Dose: 100 mls/hr Azithromycin (Zithromax 500mg Ivpb (Pre-Docked)) 250 mls @ 250 mls/hr IVPB DAILY [facility] Last Admin: 08/04/16 11:10 Dose: 250 mls/hr Methylprednisolone Sodium Succinate (Solu-Medrol -) 40 mg IVPB Q6H-IV [facility] Last Admin: 08/04/16 10:09 Dose: 40 mg Zafirlukast 10mg (Pt ('s Own, Non Form)) 1 each PO AM [facility] Last Admin: 08/04/16 11:22 Dose: 1 each Pantoprazole Sodium (Protonix -) 40 mg PO DAILY [facility] Last Admin: 08/04/16 10:09 Dose: 40 mg Constitutional: Yes: Mildly tachypneic at rest Eyes: Yes: EOM Intact HENT: Yes: Normocephalic Neck: Yes: Trachea Midline Cardiovascular: Yes: Regular Rate and Rhythm Respiratory: Yes: few scattered rhonchi and mild expiratory Wheezes Gastrointestinal: Yes: Normal Bowel Sounds Edema: No Neurological: Yes: Alert Labs: Laboratory Results - last 24 hr 08/04/16 08/04/16 05:33 05:33 WBC 15.4 H D RBC 4.16 Hgb 12.7 Hct 38.0 MCV 91.5 MCHC 33.4 RDW 13.9 Plt Count 142 MPV 10.0 D Neutrophils % 88.7 H Lymphocytes % 6.5 L Monocytes % 4.6 Eosinophils % 0.0 Basophils % 0.2 Sodium 136 Potassium 4.9 D Chloride 99 Carbon Dioxide 26 Anion Gap 11 BUN 15 Creatinine 0.8 D Creat Clearance w eGFR > 60 Random Glucose 143 H D Calcium 9.1 Phosphorus 3.2 Magnesium 2.3 Total Bilirubin 0.4 D AST 32 D ALT 47 Alkaline Phosphatase 84 Total Protein 6.5 Albumin 3.3 L Assessment/Plan AE of ASTHMA/COPD ACUTE BRONCHITIS PUD HPL IV MEDROL NOTED ANTIBIOTICS CHANGE SYMBICORT TO 2 INHALATIONS BID BD TX PRN DAILY PEAK FLOW O2 SUPPLEMENTATION DR MYLES[ERSAUD
[2016-08-04] MEDS: ENOXAPARIN NA (PORCINE) 40 MG/0.4 ML DISP.SYRIN SQ SCH (18:43)
[2016-08-04] MEDS: BENZOCAINE/MENTH/CETYLPYRD CL 1 EACH LOZENGE MM PRN (22:22)
[2016-08-04] MEDS: PHENOL 177 ML SPRAY BOTTLE MM PRN (22:26)
[2016-08-04] MEDS: ATORVASTATIN CA 10 MG TABLET (FP) PO SCH (22:26)
[2016-08-05] MEDS: methylPREDNISolone NA SUCC 40 MG/1 ML VIAL IVPB SCH ×4 (03:07→21:19)
[2016-08-05] MEDS ORDERED: PT OWN MED DRAWER 7, Y5N ONE ×2 (06:17→21:12)
[2016-08-05] MEDS: ALBUTEROL SO4 2.5/IPRATROPIUM 0.5 INH SOL 3 ML VIAL.NEB. NEB SCH ×5 (06:25→23:58)
[2016-08-05] MEDS: [UNRECOGNIZED DRUG - REMARK] PO SCH (06:48)
[2016-08-05 07:57] LABS: BASOPHIL 0.1 % (0-2.0); MCH 30.5 pg (25.7-33.7); MCHC 33.3 g/dl (32.0-36.0); MEAN CELL VOLUME 91.6 fl (80-96); MEAN PLT VOLUME 9.7 fl (7.5-11.1); NEUTROPHILS 85.4 % (42.8-82.8); PLATELET COUNT 170 K/MM3 (134-434); RDW 13.9 % (11.6-15.6); WHITE BLOOD COUNT 18.1 K/mm3 (4.0-10.0)
[2016-08-05 08:26] LABS: ALBUMIN 3.4 g/dl (3.4-5.0); ANION GAP 11 (8-16); BILIRUBIN,TOTAL 0.5 mg/dL (0.2-1.0); CALCIUM 9.3 mg/dL (8.5-10.1); CO2 26 mmol/L (21-32); CREATININE 0.8 mg/dL (0.55-1.02); GLUCOSE,RANDOM 120 mg/dL (74-106); MAGNESIUM 2.4 mg/dL (1.8-2.4); SGOT/AST 40 U/L (15-37); SGPT/ALT 70 U/L (12-78); TOT PROT 6.8 g/dl (6.4-8.2)
[2016-08-05 08:27] LABS: ALK PHOS 86 U/L (45-117)
[2016-08-05] MEDS: ENOXAPARIN NA (PORCINE) 40 MG/0.4 ML DISP.SYRIN SQ SCH (09:34)
[2016-08-05] MEDS: PANTOPRAZOLE 40 MG TABLET (FP) PO SCH (09:35)
--- NOTE | 2016-08-05 09:40 | PN ---
Physical Exam: SUBJECTIVE: Patient seen and examined. States "I can hear myself wheezing," but is feeling well and less SOB. OBJECTIVE: Patient SPO2 is 93% on RA. After walking ~50 feet, SPO2 88% on RA. GENERAL: The patient is awake, alert, and fully oriented, in no acute distress. HEAD: Normal with no signs of trauma. EYES: PERRL, extraocular movements intact, sclera anicteric, conjunctiva clear. No ptosis. ENT: Ears normal, nares patent, oropharynx clear without exudates, moist mucous membranes. NECK: Trachea midline, full range of motion, supple. LUNGS: Breath sounds equal to auscultation bilaterally with rhonchi and scattered wheezes. Abdominal muscle use observed with any exertion; SPO2 is 93% on RA. After walking ~50 feet, SPO2 88% on RA. HEART: Regular rate and rhythm, S1, S2 without murmur, rub or gallop. ABDOMEN: Soft, nontender, nondistended, normoactive bowel sounds, no guarding, no rebound, no hepatosplenomegaly, no masses. EXTREMITIES: 2+ pulses, warm, well-perfused, no edema. NEUROLOGICAL: Cranial nerves II through XII grossly intact. Normal speech, normal gait. PSYCH: Normal mood, normal affect. SKIN: Warm, dry, normal turgor, no rashes or lesions noted Active Medications Generic Name Dose Route Start Last Admin Trade Name Freq PRN Reason Stop Dose Admin Albuterol/Ipratropium 1 amp 08/03/16 18:00 08/05/16 06:25 Duoneb - NEB 1 amp Q4HWA PAULA Administration Atorvastatin Calcium 10 mg 08/03/16 22:00 08/04/16 22:26 Lipitor - PO 10 mg HS PAULA Administration Benzocaine/Menthol 1 each 08/04/16 17:31 08/04/16 22:22 Cepacol Lozenge - MM 1 each PRN PRN Administration SORE THROAT Budesonide/Formoterol Fumarate 2 puff 08/04/16 12:11 08/04/16 22:26 Symbicort 160/4.5mcg - IH 2 puff BID PAULA Administration Enoxaparin Sodium 40 mg 08/04/16 17:45 08/05/16 09:34 Lovenox - SQ 40 mg DAILY PAULA Administration Ceftriaxone Sodium 50 mls @ 100 mls/hr 08/03/16 15:00 08/04/16 10:30 Rocephin 1gm Ivpb (Pre-Docked) IVPB 100 mls/hr DAILY PAULA Administration Azithromycin 250 mls @ 250 mls/hr 08/04/16 10:00 08/04/16 11:10 Zithromax 500mg Ivpb (Pre-Docked) IVPB 250 mls/hr DAILY PAULA Administration Methylprednisolone Sodium Succinate 40 mg 08/03/16 15:00 08/05/16 09:34 Solu-Medrol - IVPB 40 mg Q6H-IV PAULA Administration Zafirlukast 10mg (Pt 1 each 08/04/16 11:09 08/05/16 06:48 's Own, Non Form) PO 1 each AM PAULA Administration Pantoprazole Sodium 40 mg 08/03/16 15:00 08/05/16 09:35 Protonix - PO 40 mg DAILY PAULA Administration Phenol/Menthol 1 spray 08/04/16 17:34 08/04/16 22:26 Chloraseptic - MM 1 spray Q6HPO PRN Administration SORE THROAT ASSESSMENT/PLAN 76 year-old female with a PMH of HLD, symptomatic bradycardia s/ p PPM (2016), asthma/COPD, PUD, and cancer (40 years ago cannot recall type). Admitted for asthma/COPD exacerbation. 1. Acute COPD/asthma exacerbation - Continue Duonebs, Symbicort, Zafirlukast - IV steroids - empiric ceftriaxone (day 3), azithromycin (day 2) - Incentive spirometry - Supplemental O2 as needed - Phenol spray PRN for hoarseness/dryness 2. Leukocystosis - Likely from steroids but cannot r/o infectious etiology - Patient has been afebrile. - Antibiotics as above - Consider repeat CXR 3. Gastric ulcers - No current issues - Continue Protonix 4. Hyperlipidemia - Continue Lipitor (hospital formulary equivalent) F/E/N Fluids: PO intake adequate Electrolytes: monitor and replace as needed Nutrition: sodium-controlled diet DVT Prophylaxis: Lovenox, OOB, Ambulation PT evaluation ordered Dispo: continues to require inpatient care. Full Code. Visit type - Emergency Visit Emergency Visit: Yes ED Registration Date: 08/05/16 Care time: The patient presented to the Emergency Department on the above date and was hospitalized for further evaluation of their emergent condition. - New Patient This patient is new to me today: No - Critical Care Critical Care patient: No
[2016-08-05] MEDS: CEFTRIAXONE 50 ML IVPB SCH (09:49)
[2016-08-05] MEDS: AZITHROMYCIN IVPB 250 ML IVPB SCH (10:50)
[2016-08-05] MEDS: BUDESONIDE/FORMETEROL FUMARATE 160/4.5 mcg INHALER IH SCH ×2 (10:50→21:20)
--- NOTE | 2016-08-05 16:30 | PN ---
Progress Note (short form) - Note Progress Note: PULMONARY IMPROVED VSS ANICTERIC B/L WHEEZES S1S2 BS+ NO EDEMA LABS/MEDS/RADIOGRAPHS/NOTES/MICRO REVIEWED ASTHMATIC BRONCHITIS PUD/HPL/COPD CONTINUE CURRENT TREATMENT/PLAN Luiz BAILEY MD
[2016-08-05] MEDS ORDERED: INFLUENZA VACCINE 45 MCG/0.5 ML (MDV 16-17) IM ONE (20:00)
[2016-08-05] MEDS: CEFUROXIME AXETIL 500 MG TABLET PO SCH (21:19)
[2016-08-05] MEDS: ATORVASTATIN CA 10 MG TABLET (FP) PO SCH (21:19)
[2016-08-06] MEDS: methylPREDNISolone NA SUCC 40 MG/1 ML VIAL IVPB SCH ×4 (03:22→21:25)
[2016-08-06] MEDS ORDERED: PT OWN MED DRAWER 7, Y5N ONE ×3 (06:33→20:07)
[2016-08-06] MEDS: [UNRECOGNIZED DRUG - REMARK] PO SCH (06:50)
[2016-08-06] MEDS: ALBUTEROL SO4 2.5/IPRATROPIUM 0.5 INH SOL 3 ML VIAL.NEB. NEB SCH ×5 (06:54→22:40)
[2016-08-06] MEDS: ENOXAPARIN NA (PORCINE) 40 MG/0.4 ML DISP.SYRIN SQ SCH (10:04)
[2016-08-06] MEDS: CEFUROXIME AXETIL 500 MG TABLET PO SCH ×2 (10:04→21:26)
[2016-08-06] MEDS: PANTOPRAZOLE 40 MG TABLET (FP) PO SCH (10:04)
[2016-08-06] MEDS: BUDESONIDE/FORMETEROL FUMARATE 160/4.5 mcg INHALER IH SCH ×2 (10:05→21:27)
[2016-08-06] MEDS: AZITHROMYCIN IVPB 250 ML IVPB SCH (10:05)
--- NOTE | 2016-08-06 12:09 | PN ---
Physical Exam: SUBJECTIVE: Patient seen and examined. States her breathing has improved some but having dyspnea on exertion. OBJECTIVE: Pt had just ambulated when I entered room, having some dyspnea with minimal exertion Her oxygen saturation with the 2 liters of nasal cannula was 93%, 28 breaths per min, with accessory muscle use Fine wheezing on left lower base Vital Signs Period Temp Pulse Resp BP Sys/Muse Pulse Ox Last 24 Hr 97.5 F-98.6 F 82-91 16-20 122-165/75-89 94-96 GENERAL: The patient is awake, alert, and fully oriented, in mild respiratory distress secondary to acute exacb. HEAD: Normal with no signs of trauma. EYES: PERRL, extraocular movements intact, sclera anicteric, conjunctiva clear. No ptosis. ENT: Ears normal, nares patent, oropharynx clear without exudates, moist mucous membranes. NECK: Trachea midline, full range of motion, supple. LUNGS: accessory muscle use, fine expiratory wheezing on left lower lung base HEART: Regular rate and rhythm, S1, S2 without murmur, rub or gallop. ABDOMEN: Soft, nontender, nondistended, normoactive bowel sounds, no guarding, no rebound, no hepatosplenomegaly, no masses. EXTREMITIES: 2+ pulses, warm, well-perfused, no edema. NEUROLOGICAL: Cranial nerves II through XII grossly intact. Normal speech, gait not observed. PSYCH: Normal mood, normal affect. SKIN: Warm, dry, normal turgor, no rashes or lesions noted Active Medications Generic Name Dose Route Start Last Admin Trade Name Freq PRN Reason Stop Dose Admin Albuterol/Ipratropium 1 amp 08/03/16 18:00 08/06/16 10:00 Duoneb - NEB 1 amp Q4HWA PAULA Administration Atorvastatin Calcium 10 mg 08/03/16 22:00 08/05/16 21:19 Lipitor - PO 10 mg HS PAULA Administration Benzocaine/Menthol 1 each 08/04/16 17:31 08/04/16 22:22 Cepacol Lozenge - MM 1 each PRN PRN Administration SORE THROAT Budesonide/Formoterol Fumarate 2 puff 08/04/16 12:11 08/06/16 10:05 Symbicort 160/4.5mcg - IH 2 puff BID PAULA Administration Cefuroxime Axetil 500 mg 08/05/16 22:00 08/06/16 10:04 Ceftin - PO 500 mg BID PAULA Administration Enoxaparin Sodium 40 mg 08/04/16 17:45 08/06/16 10:04 Lovenox - SQ 40 mg DAILY PAULA Administration Azithromycin 250 mls @ 250 mls/hr 08/04/16 10:00 08/06/16 10:05 Zithromax 500mg Ivpb (Pre-Docked) IVPB 250 mls/hr DAILY PAULA Administration Methylprednisolone Sodium Succinate 40 mg 08/03/16 15:00 08/06/16 08:51 Solu-Medrol - IVPB 40 mg Q6H-IV PAULA Administration Zafirlukast 10mg (Pt 1 each 08/04/16 11:09 08/06/16 06:50 's Own, Non Form) PO 1 each AM PAULA Administration Pantoprazole Sodium 40 mg 08/03/16 15:00 08/06/16 10:04 Protonix - PO 40 mg DAILY PAULA Administration Phenol/Menthol 1 spray 08/04/16 17:34 08/04/16 22:26 Chloraseptic - MM 1 spray Q6HPO PRN Administration SORE THROAT ASSESSMENT/PLAN: Patient is a 76 year old female with a significant past medical history of COPD , asthma, stomach ulcers, hypercholesterolemia. She presents to the ED on 2016 complaining of shortness of breath with any exertion that progressively worsened. she also reports a productive cought with yellow sputum. As per the patient, her last COPD exacerbation was in September 2015. She is not home oxygen dependent. The patient denies chest pain, fever, sweats, n/v/d. She states she feels weak. Imaging: Chest Xray 08/02/2016 - Apical lordotic projection, clear lungs, normal mediastinum, double lead PM and no signs of acute proceses Pulmonary: COPD/Asthma exacerbation with hypoxia - acute on chronic Assessment/Plan: In ED she received Solumedrol 125mg x 1, duonebs x 3 and Azithromycin Now on solumedrol 40mg q8 On albuterol/Ipra duonebs q4 scheduled On Azithromycin and Ceftin 500 PO BID On 3 liters of oxygen On Symbicort and Zafirlukast Some wheezing on left lower base, but compared to when I last saw her, her lungs sounds have improved. Incentive spirometer Pulmonary consult with Dr. Ambriz Pre and post oxygen levels to assess for home oxygen needs Hematology: Leukocytosis - monitor Assessment/Plan: on steroids, clinically improving, afebrile GI: Stomach Ulcers Assessment/Plan: will start on protonix while on steroids F.E.N. Fluids: tolerating PO Electrolytes: bmp in a.m. Nutrition: regular diet DVT: SCDs, ambulation, lovenox 40mg GI: Protonix disposition: Pre and post oxygen respiratory read prior to discharge. Full Code. Visit type - Emergency Visit Emergency Visit: Yes ED Registration Date: 08/05/16 Care time: The patient presented to the Emergency Department on the above date and was hospitalized for further evaluation of their emergent condition. - New Patient This patient is new to me today: No - Critical Care Critical Care patient: No - Discharge Referral Referred to [facility] Med P.C.: No
--- NOTE | 2016-08-06 14:41 | PN ---
Progress Note (short form) - Note Progress Note: PULMONARY VSS ANICTERIC B/L WHEEZES S1S2 BS+ NO EDEMA LABS/MEDS/RADIOGRAPHS/NOTES/MICRO REVIEWED ASTHMATIC BRONCHITIS PUD/HPL/COPD CONTINUE CURRENT TREATMENT/PLAN Luiz BAILEY MD
[2016-08-06] MEDS: ATORVASTATIN CA 10 MG TABLET (FP) PO SCH (21:27)
[2016-08-07] MEDS: methylPREDNISolone NA SUCC 40 MG/1 ML VIAL IVPB SCH ×4 (02:28→22:27)
[2016-08-07] MEDS ORDERED: diphenhydrAMINE HCL 25 MG CAPSULE (FP) PO ONE (03:30)
[2016-08-07] MEDS ORDERED: PT OWN MED DRAWER 7, Y5N ONE ×3 (06:21→22:20)
[2016-08-07] MEDS: [UNRECOGNIZED DRUG - REMARK] PO SCH (06:42)
[2016-08-07] MEDS: ALBUTEROL SO4 2.5/IPRATROPIUM 0.5 INH SOL 3 ML VIAL.NEB. NEB SCH ×5 (06:55→22:20)
[2016-08-07 07:28] LABS: MCH 30.5 pg (25.7-33.7); MEAN CELL VOLUME 92.4 fl (80-96); MEAN PLT VOLUME 9.4 fl (7.5-11.1); PLATELET COUNT 195 K/MM3 (134-434); WHITE BLOOD COUNT 16.6 K/mm3 (4.0-10.0)
[2016-08-07 08:07] LABS: ALBUMIN 3.1 g/dl (3.4-5.0); ANION GAP 12 (8-16); BILIRUBIN,TOTAL 0.4 mg/dL (0.2-1.0); CALCIUM 8.5 mg/dL (8.5-10.1); CO2 28 mmol/L (21-32); COCKROFT - GAULT 92.5735; CREATININE 0.7 mg/dL (0.55-1.02); GLUCOSE,RANDOM 100 mg/dL (74-106); SGOT/AST 22 U/L (15-37); SGPT/ALT 62 U/L (12-78); TOT PROT 6.4 g/dl (6.4-8.2)
[2016-08-07 08:08] LABS: ALK PHOS 76 U/L (45-117)
[2016-08-07] MEDS: ENOXAPARIN NA (PORCINE) 40 MG/0.4 ML DISP.SYRIN SQ SCH (10:10)
[2016-08-07] MEDS: PANTOPRAZOLE 40 MG TABLET (FP) PO SCH (10:11)
[2016-08-07] MEDS: AZITHROMYCIN IVPB 250 ML IVPB SCH (10:11)
[2016-08-07] MEDS: BUDESONIDE/FORMETEROL FUMARATE 160/4.5 mcg INHALER IH SCH ×2 (10:12→22:28)
[2016-08-07] MEDS: CEFUROXIME AXETIL 500 MG TABLET PO SCH ×2 (10:12→22:27)
[2016-08-07] MEDS: BENZOCAINE/MENTH/CETYLPYRD CL 1 EACH LOZENGE MM PRN (10:13)
--- NOTE | 2016-08-07 11:46 | PN ---
Progress Note (short form) - Note Progress Note: PULMONARY SUBJECTIVE IMPROVEMENT VSS ANICTERIC B/L WHEEZES IMPROVED S1S2 BS+ NO EDEMA LABS/MEDS/RADIOGRAPHS/NOTES/MICRO REVIEWED ASTHMATIC BRONCHITIS PUD/HPL/COPD CONTINUE CURRENT TREATMENT/PLAN Luiz BAILEY MD
[2016-08-07 12:09] LABS: PLATELET ESTIMATE ADEQUATE (NORMAL)
--- NOTE | 2016-08-07 13:03 | PN ---
Physical Exam: SUBJECTIVE: Patient seen and examined. Having dyspnea with ambulation. Denies chest pain. Having trouble sleeping. OBJECTIVE: Respiratory pre and post ordered for a.m. to assess pt needs for home oxygen anticipate discharge tomorrow Vital Signs Period Temp Pulse Resp BP Sys/Muse Pulse Ox Last 24 Hr 97.9 F-98.4 F 77-85 18-22 127-140/62-74 90-98 GENERAL: The patient is awake, alert, and fully oriented, in mild respiratory distress secondary to acute exacb. HEAD: Normal with no signs of trauma. EYES: PERRL, extraocular movements intact, sclera anicteric, conjunctiva clear. No ptosis. ENT: Ears normal, nares patent, oropharynx clear without exudates, moist mucous membranes. NECK: Trachea midline, full range of motion, supple. LUNGS: accessory muscle use, lungs diminished bilaterall HEART: Regular rate and rhythm, S1, S2 without murmur, rub or gallop. ABDOMEN: Soft, nontender, nondistended, normoactive bowel sounds, no guarding, no rebound, no hepatosplenomegaly, no masses. EXTREMITIES: 2+ pulses, warm, well-perfused, no edema. NEUROLOGICAL: Cranial nerves II through XII grossly intact. Normal speech, steady gait SKIN: Warm, dry, normal turgor, no rashes or lesions noted Laboratory Results - last 24 hr 08/07/16 08/07/16 06:15 06:15 WBC 16.6 H RBC 4.22 Hgb 12.9 Hct 39.0 MCV 92.4 MCHC 33.0 RDW 14.0 Plt Count 195 MPV 9.4 Neutrophils % 79.0 Lymphocytes % 6.0 L D Monocytes % 7.0 Myelocytes 4 H Promyelocytes 1 Differential Comment Manual diff done Plasmacytoid Lymphs 3 Platelet Estimate Adequate Sodium 142 Potassium 4.5 Chloride 102 Carbon Dioxide 28 Anion Gap 12 BUN 14 Creatinine 0.7 Creat Clearance w eGFR > 60 Random Glucose 100 Calcium 8.5 Total Bilirubin 0.4 AST 22 D ALT 62 Alkaline Phosphatase 76 Total Protein 6.4 Albumin 3.1 L Active Medications Generic Name Dose Route Start Last Admin Trade Name Freq PRN Reason Stop Dose Admin Albuterol/Ipratropium 1 amp 08/03/16 18:00 08/07/16 10:15 Duoneb - NEB 1 amp Q4HWA PAULA Administration Atorvastatin Calcium 10 mg 08/03/16 22:00 08/06/16 21:27 Lipitor - PO 10 mg HS PAULA Administration Benzocaine/Menthol 1 each 08/04/16 17:31 08/07/16 10:13 Cepacol Lozenge - MM 1 each PRN PRN Administration SORE THROAT Budesonide/Formoterol Fumarate 2 puff 08/04/16 12:11 08/07/16 10:12 Symbicort 160/4.5mcg - IH 2 puff BID PAULA Administration Cefuroxime Axetil 500 mg 08/05/16 22:00 08/07/16 10:12 Ceftin - PO 500 mg BID PAULA Administration Enoxaparin Sodium 40 mg 08/04/16 17:45 08/07/16 10:10 Lovenox - SQ 40 mg DAILY PAULA Administration Azithromycin 250 mls @ 250 mls/hr 08/04/16 10:00 08/07/16 10:11 Zithromax 500mg Ivpb (Pre-Docked) IVPB 250 mls/hr DAILY PAULA Administration Methylprednisolone Sodium Succinate 40 mg 08/03/16 15:00 08/07/16 10:11 Solu-Medrol - IVPB 40 mg Q6H-IV PAULA Administration Zafirlukast 10mg (Pt 1 each 08/04/16 11:09 08/07/16 06:42 's Own, Non Form) PO 1 each AM PAULA Administration Pantoprazole Sodium 40 mg 08/03/16 15:00 08/07/16 10:11 Protonix - PO 40 mg DAILY PAULA Administration Phenol/Menthol 1 spray 08/04/16 17:34 08/04/16 22:26 Chloraseptic - MM 1 spray Q6HPO PRN Administration SORE THROAT Zolpidem Tartrate 5 mg 08/07/16 13:00 Ambien - PO HS PRN INSOMNIA ASSESSMENT/PLAN: Patient is a 76 year old female with a significant past medical history of COPD , asthma, stomach ulcers, hypercholesterolemia. She presents to the ED on 2016 complaining of shortness of breath with any exertion that progressively worsened. she also reports a productive cough with yellow sputum. As per the patient, her last COPD exacerbation was in September 2015. She is not home oxygen dependent. The patient denies chest pain, fever, sweats, n/v/d. She states she feels weak. Imaging: Chest Xray 08/02/2016 - Apical lordotic projection, clear lungs, normal mediastinum, double lead PM and no signs of acute process Pulmonary: COPD/Asthma exacerbation with hypoxia - acute on chronic Assessment/Plan: Improving, still having accessory muscle use and dyspnea with ambulation, not home oxygen dependent, pre and post ordered Now on solumedrol 40mg q6 On albuterol/Ipra duonebs q4 scheduled On Azithromycin and Ceftin 500 PO BID On 3 liters of supplemental oxygen On Symbicort and Zafirlukast Incentive spirometer Pulmonary consult with Dr. Ambriz Pre and post oxygen levels to assess for home oxygen needs Hematology: Leukocytosis - monitor Assessment/Plan: on steroids, clinically improving, afebrile GI: Stomach Ulcers Assessment/Plan: will start on protonix while on steroids F.E.N. Fluids: tolerating PO Electrolytes: bmp in a.m. Nutrition: regular diet DVT: SCDs, ambulation, lovenox 40mg GI: Protonix disposition: Pre and post oxygen respiratory read prior to discharge. Full Code. Visit type - Emergency Visit Emergency Visit: Yes ED Registration Date: 08/05/16 Care time: The patient presented to the Emergency Department on the above date and was hospitalized for further evaluation of their emergent condition. - New Patient This patient is new to me today: No - Critical Care Critical Care patient: No - Discharge Referral Referred to [facility] Med P.C.: No
[2016-08-07] MEDS: ATORVASTATIN CA 10 MG TABLET (FP) PO SCH (22:28)
[2016-08-07] MEDS: ZOLPIDEM TARTRATE 5 MG TABLET PO PRN (22:31)
[2016-08-08] MEDS: methylPREDNISolone NA SUCC 40 MG/1 ML VIAL IVPB SCH ×4 (03:11→21:40)
[2016-08-08] MEDS: [UNRECOGNIZED DRUG - REMARK] PO SCH (06:29)
[2016-08-08] MEDS: ALBUTEROL SO4 2.5/IPRATROPIUM 0.5 INH SOL 3 ML VIAL.NEB. NEB SCH ×4 (06:55→17:35)
[2016-08-08 08:44] LABS: MCH 30.6 pg (25.7-33.7); MCHC 32.9 g/dl (32.0-36.0); MEAN CELL VOLUME 92.8 fl (80-96); MEAN PLT VOLUME 9.2 fl (7.5-11.1); PLATELET COUNT 205 K/MM3 (134-434); RDW 14.1 % (11.6-15.6); WHITE BLOOD COUNT 16.9 K/mm3 (4.0-10.0)
[2016-08-08 09:10] LABS: ALBUMIN 3.2 g/dl (3.4-5.0); ANION GAP 9 (8-16); CALCIUM 8.9 mg/dL (8.5-10.1); CO2 29 mmol/L (21-32); GLUCOSE,RANDOM 101 mg/dL (74-106)
[2016-08-08 09:15] LABS: ALK PHOS 76 U/L (45-117); BILIRUBIN,TOTAL 0.6 mg/dL (0.2-1.0); COCKROFT - GAULT 92.5735; CREATININE 0.7 mg/dL (0.55-1.02); SGOT/AST 22 U/L (15-37); SGPT/ALT 61 U/L (12-78); TOT PROT 6.6 g/dl (6.4-8.2)
[2016-08-08] MEDS ORDERED: PT OWN MED DRAWER 7, Y5N ONE ×3 (10:37→21:22)
[2016-08-08] MEDS: ENOXAPARIN NA (PORCINE) 40 MG/0.4 ML DISP.SYRIN SQ SCH (10:48)
[2016-08-08] MEDS: PANTOPRAZOLE 40 MG TABLET (FP) PO SCH (10:48)
[2016-08-08] MEDS: CEFUROXIME AXETIL 500 MG TABLET PO SCH ×2 (10:48→21:40)
[2016-08-08] MEDS: BUDESONIDE/FORMETEROL FUMARATE 160/4.5 mcg INHALER IH SCH ×2 (10:49→21:41)
[2016-08-08 11:07] LABS: METAMYELOCYTE 1 % (0-2)
[2016-08-08] MEDS: AZITHROMYCIN IVPB 250 ML IVPB SCH (11:32)
--- NOTE | 2016-08-08 13:01 | PN ---
Physical Exam: SUBJECTIVE: Patient seen and examined OBJECTIVE: Pre and post ambulatory oxygen stable on room air Discharge once cleared by pulmonary Vital Signs Period Temp Pulse Resp BP Sys/Muse Pulse Ox Last 24 Hr 97.6 F-98.5 F 70-79 18-20 118-136/56-80 98 GENERAL: The patient is awake, alert, and fully oriented, in mild respiratory distress secondary to acute exacb. HEAD: Normal with no signs of trauma. EYES: PERRL, extraocular movements intact, sclera anicteric, conjunctiva clear. No ptosis. ENT: Ears normal, nares patent, oropharynx clear without exudates, moist mucous membranes. NECK: Trachea midline, full range of motion, supple. LUNGS: accessory muscle use, lungs diminished bilaterall HEART: Regular rate and rhythm, S1, S2 without murmur, rub or gallop. ABDOMEN: Soft, nontender, nondistended, normoactive bowel sounds, no guarding, no rebound, no hepatosplenomegaly, no masses. EXTREMITIES: 2+ pulses, warm, well-perfused, no edema. NEUROLOGICAL: Cranial nerves II through XII grossly intact. Normal speech, steady gait SKIN: Warm, dry, normal turgor, no rashes or lesions noted Laboratory Results - last 24 hr 08/08/16 08/08/16 07:10 07:10 WBC 16.9 H RBC 4.38 Hgb 13.4 Hct 40.6 MCV 92.8 MCHC 32.9 RDW 14.1 Plt Count 205 MPV 9.2 Neutrophils % 82.0 Lymphocytes % 9.0 D Monocytes % 7.0 Metamyelocytes 1 Myelocytes 1 D Sodium 137 Potassium 4.5 Chloride 99 Carbon Dioxide 29 Anion Gap 9 BUN 19 H D Creatinine 0.7 Creat Clearance w eGFR > 60 Random Glucose 101 Calcium 8.9 Total Bilirubin 0.6 D AST 22 ALT 61 Alkaline Phosphatase 76 Total Protein 6.6 Albumin 3.2 L Active Medications Generic Name Dose Route Start Last Admin Trade Name Freq PRN Reason Stop Dose Admin Albuterol/Ipratropium 1 amp 08/03/16 18:00 08/08/16 10:48 Duoneb - NEB 1 amp Q4HWA PAULA Administration Atorvastatin Calcium 10 mg 08/03/16 22:00 08/07/16 22:28 Lipitor - PO 10 mg HS PAULA Administration Benzocaine/Menthol 1 each 08/04/16 17:31 08/07/16 10:13 Cepacol Lozenge - MM 1 each PRN PRN Administration SORE THROAT Budesonide/Formoterol Fumarate 2 puff 08/04/16 12:11 08/08/16 10:49 Symbicort 160/4.5mcg - IH 2 puff BID PAULA Administration Cefuroxime Axetil 500 mg 08/05/16 22:00 08/08/16 10:48 Ceftin - PO 500 mg BID PAULA Administration Enoxaparin Sodium 40 mg 08/04/16 17:45 08/08/16 10:48 Lovenox - SQ 40 mg DAILY PAULA Administration Azithromycin 250 mls @ 250 mls/hr 08/04/16 10:00 08/08/16 11:32 Zithromax 500mg Ivpb (Pre-Docked) IVPB 250 mls/hr DAILY PAULA Administration Methylprednisolone Sodium Succinate 40 mg 08/03/16 15:00 08/08/16 10:47 Solu-Medrol - IVPB 40 mg Q6H-IV PAULA Administration Zafirlukast 10mg (Pt 1 each 08/04/16 11:09 08/08/16 06:29 's Own, Non Form) PO 1 each AM PAULA Administration Pantoprazole Sodium 40 mg 08/03/16 15:00 08/08/16 10:48 Protonix - PO 40 mg DAILY PAULA Administration Phenol/Menthol 1 spray 08/04/16 17:34 08/04/16 22:26 Chloraseptic - MM 1 spray Q6HPO PRN Administration SORE THROAT Zolpidem Tartrate 5 mg 08/07/16 22:00 08/07/16 22:31 Ambien - PO 5 mg HS PRN Administration INSOMNIA ASSESSMENT/PLAN: Patient is a 76 year old female with a significant past medical history of COPD , asthma, stomach ulcers, hypercholesterolemia. She presents to the ED on 2016 complaining of shortness of breath with any exertion that progressively worsened. she also reports a productive cough with yellow sputum. As per the patient, her last COPD exacerbation was in September 2015. She is not home oxygen dependent. The patient denies chest pain, fever, sweats, n/v/d. She states she feels weak. Imaging: Chest Xray 08/02/2016 - Apical lordotic projection, clear lungs, normal mediastinum, double lead PM and no signs of acute process Pulmonary: COPD/Asthma exacerbation with hypoxia - acute on chronic Assessment/Plan: Improving, pre and post oxygen stable on room air Now on solumedrol 40mg q6 - d/c once cleared by pulmonary On albuterol/Ipra duonebs q4 scheduled On Azithromycin and Ceftin 500 PO BID On 3 liters of supplemental oxygen prn On Symbicort and Zafirlukast Incentive spirometer Hematology: Leukocytosis - monitor Assessment/Plan: on steroids, clinically improving, afebrile GI: Stomach Ulcers Assessment/Plan: on protonix F.E.N. Fluids: tolerating PO Electrolytes: bmp in a.m. Nutrition: regular diet DVT: SCDs, ambulation, lovenox 40mg GI: Protonix Visit type - Emergency Visit Emergency Visit: Yes ED Registration Date: 08/05/16 Care time: The patient presented to the Emergency Department on the above date and was hospitalized for further evaluation of their emergent condition. - New Patient This patient is new to me today: No - Critical Care Critical Care patient: No - Discharge Referral Referred to [facility] Med P.C.: No
--- NOTE | 2016-08-08 15:43 | PN ---
Progress Note, Physician History of Present Illness: PULMONARY ALERT,FEELING BETTER,LESS SOB,LESS COUGH,LESS CONESTED - Current Medication List Current Medications: Active Medications Albuterol/Ipratropium (Duoneb -) 1 amp NEB Q4HWA [facility] Last Admin: 08/08/16 14:19 Dose: 1 amp Atorvastatin Calcium (Lipitor -) 10 mg PO HS [facility] Last Admin: 08/07/16 22:28 Dose: 10 mg Benzocaine/Menthol (Cepacol Lozenge -) 1 each MM PRN PRN PRN Reason: SORE THROAT Last Admin: 08/07/16 10:13 Dose: 1 each Budesonide/Formoterol Fumarate (Symbicort 160/4.5mcg -) 2 puff IH BID [facility] Last Admin: 08/08/16 10:49 Dose: 2 puff Cefuroxime Axetil (Ceftin -) 500 mg PO BID [facility] Last Admin: 08/08/16 10:48 Dose: 500 mg Enoxaparin Sodium (Lovenox -) 40 mg SQ DAILY [facility] Last Admin: 08/08/16 10:48 Dose: 40 mg Azithromycin (Zithromax 500mg Ivpb (Pre-Docked)) 250 mls @ 250 mls/hr IVPB DAILY [facility] Last Admin: 08/08/16 11:32 Dose: 250 mls/hr Methylprednisolone Sodium Succinate (Solu-Medrol -) 40 mg IVPB Q6H-IV [facility] Last Admin: 08/08/16 15:21 Dose: 40 mg Zafirlukast 10mg (Pt ('s Own, Non Form)) 1 each PO AM [facility] Last Admin: 08/08/16 06:29 Dose: 1 each Pantoprazole Sodium (Protonix -) 40 mg PO DAILY [facility] Last Admin: 08/08/16 10:48 Dose: 40 mg Phenol/Menthol (Chloraseptic -) 1 spray MM Q6HPO PRN PRN Reason: SORE THROAT Last Admin: 08/04/16 22:26 Dose: 1 spray Zolpidem Tartrate (Ambien -) 5 mg PO HS PRN PRN Reason: INSOMNIA Last Admin: 08/07/16 22:31 Dose: 5 mg - Objective Vital Signs: Vital Signs Temperature 98.1 F 08/08/16 14:02 Pulse Rate 93 H 08/08/16 14:20 Respiratory Rate 22 04/10/17 14:02 Blood Pressure 136/77 08/08/16 14:02 O2 Sat by Pulse Oximetry (%) 95 08/08/16 14:20 Constitutional: Yes: Well Nourished, Calm Eyes: Yes: WNL HENT: Yes: WNL Neck: Yes: WNL Cardiovascular: Yes: Regular Rate and Rhythm, S1, S2 Respiratory: Yes: Rhonchi, Wheezes (SCATTERED WHEEZES AND RHONCHI) Gastrointestinal: Yes: Normal Bowel Sounds, Soft Extremities: Yes: WNL Edema: Yes Labs: CBC, BMP 08/08/16 07:10 08/08/16 07:10 INR, PTT INR 1.13 (0.82-1.09) 08/02/16 22:52 Problem List - Problems (1) Acute bronchitis Code(s): J20.9 - ACUTE BRONCHITIS, UNSPECIFIED (2) Acute exacerbation of COPD with asthma Code(s): J44.1 - CHRONIC OBSTRUCTIVE PULMONARY DISEASE W (ACUTE) EXACERBATION J45.901 - UNSPECIFIED ASTHMA WITH (ACUTE) EXACERBATION (3) Cough Code(s): R05 - COUGH (4) Exacerbation of asthma Code(s): J45.901 - UNSPECIFIED ASTHMA WITH (ACUTE) EXACERBATION (5) Hypoxia Code(s): R09.02 - HYPOXEMIA Assessment/Plan Assessment/Plan ACUTE ASTHMATIC BRONCHITIS CLINICALLY IMPROVING COPD PUD HPL MEDROL Q8 ANTIBIOTICS ICS/LABA NEO/ANTICHOLINERGIC DAILY PEAK FLOW O2 SUPPLEMENTATION START PREDNISONE IN AM IF CONGESTION IMPROVING DR DUNAWAY
[2016-08-08] MEDS: ZOLPIDEM TARTRATE 5 MG TABLET PO PRN (21:40)
[2016-08-08] MEDS: ATORVASTATIN CA 10 MG TABLET (FP) PO SCH (21:40)
[2016-08-09] MEDS: [UNRECOGNIZED DRUG - REMARK] PO SCH (06:45)
[2016-08-09] MEDS ORDERED: PT OWN MED DRAWER 7, Y5N ONE ×3 (07:08→15:23)
[2016-08-09 07:40] LABS: BASOPHIL 0.1 % (0-2.0); MCH 30.5 pg (25.7-33.7); MEAN CELL VOLUME 92.2 fl (80-96); MEAN PLT VOLUME 8.9 fl (7.5-11.1); NEUTROPHILS 83.2 % (42.8-82.8); PLATELET COUNT 193 K/MM3 (134-434); RDW 14.4 % (11.6-15.6); WHITE BLOOD COUNT 17.2 K/mm3 (4.0-10.0)
[2016-08-09 08:37] LABS: ALBUMIN 2.8 g/dl (3.4-5.0); ANION GAP 11 (8-16); CALCIUM 8.5 mg/dL (8.5-10.1); CO2 28 mmol/L (21-32); GLUCOSE,RANDOM 88 mg/dL (74-106)
[2016-08-09 08:42] LABS: ALK PHOS 65 U/L (45-117); BILIRUBIN,TOTAL 0.5 mg/dL (0.2-1.0); COCKROFT - GAULT 92.5735; CREATININE 0.7 mg/dL (0.55-1.02); SGOT/AST 13 U/L (15-37); SGPT/ALT 47 U/L (12-78); TOT PROT 5.7 g/dl (6.4-8.2)
[2016-08-09] MEDS: methylPREDNISolone NA SUCC 40 MG/1 ML VIAL IVPB SCH ×2 (09:14→14:31)
[2016-08-09] MEDS: AZITHROMYCIN IVPB 250 ML IVPB SCH (10:46)
[2016-08-09] MEDS: PHENOL 177 ML SPRAY BOTTLE MM PRN (10:46)
[2016-08-09] MEDS: BUDESONIDE/FORMETEROL FUMARATE 160/4.5 mcg INHALER IH SCH (10:46)
[2016-08-09] MEDS: PANTOPRAZOLE 40 MG TABLET (FP) PO SCH (10:47)
[2016-08-09] MEDS: ENOXAPARIN NA (PORCINE) 40 MG/0.4 ML DISP.SYRIN SQ SCH (10:47)
--- NOTE | 2016-08-09 14:08 | PN ---
Progress Note, Physician History of Present Illness: pulmonary alert,feeling better,-sob,-congestion - Current Medication List Current Medications: Active Medications Atorvastatin Calcium (Lipitor -) 10 mg PO HS [facility] Last Admin: 08/08/16 21:40 Dose: 10 mg Benzocaine/Menthol (Cepacol Lozenge -) 1 each MM PRN PRN PRN Reason: SORE THROAT Last Admin: 08/07/16 10:13 Dose: 1 each Budesonide/Formoterol Fumarate (Symbicort 160/4.5mcg -) 2 puff IH BID [facility] Last Admin: 08/09/16 10:46 Dose: 2 puff Enoxaparin Sodium (Lovenox -) 40 mg SQ DAILY [facility] Last Admin: 08/09/16 10:47 Dose: 40 mg Azithromycin (Zithromax 500mg Ivpb (Pre-Docked)) 250 mls @ 250 mls/hr IVPB DAILY [facility] Last Admin: 08/09/16 10:46 Dose: 250 mls/hr Methylprednisolone Sodium Succinate (Solu-Medrol -) 40 mg IVPB TID [facility] Last Admin: 08/09/16 09:14 Dose: 40 mg Zafirlukast 10mg (Pt ('s Own, Non Form)) 1 each PO AM [facility] Last Admin: 08/09/16 06:45 Dose: 1 each Pantoprazole Sodium (Protonix -) 40 mg PO DAILY [facility] Last Admin: 08/09/16 10:47 Dose: 40 mg Phenol/Menthol (Chloraseptic -) 1 spray MM Q6HPO PRN PRN Reason: SORE THROAT Last Admin: 08/09/16 10:46 Dose: 1 spray Zolpidem Tartrate (Ambien -) 5 mg PO HS PRN PRN Reason: INSOMNIA Last Admin: 08/08/16 21:40 Dose: 5 mg - Objective Vital Signs: Vital Signs Temperature 98.4 F 08/09/16 09:00 Pulse Rate 75 08/09/16 09:00 Respiratory Rate 18 08/09/16 09:00 Blood Pressure 134/72 08/09/16 09:00 O2 Sat by Pulse Oximetry (%) 96 08/08/16 21:00 Constitutional: Yes: Well Nourished, Calm Eyes: Yes: WNL HENT: Yes: WNL Neck: Yes: WNL Cardiovascular: Yes: Regular Rate and Rhythm, S1, S2 Respiratory: Yes: Wheezes (few wheezes) Gastrointestinal: Yes: Normal Bowel Sounds, Soft Extremities: Yes: WNL Edema: Yes Labs: CBC, BMP 08/09/16 06:35 08/09/16 06:35 INR, PTT INR 1.13 (0.82-1.09) 08/02/16 22:52 Problem List - Problems (1) Acute bronchitis Code(s): J20.9 - ACUTE BRONCHITIS, UNSPECIFIED (2) Acute exacerbation of COPD with asthma Code(s): J44.1 - CHRONIC OBSTRUCTIVE PULMONARY DISEASE W (ACUTE) EXACERBATION J45.901 - UNSPECIFIED ASTHMA WITH (ACUTE) EXACERBATION (3) Cough Code(s): R05 - COUGH (4) Exacerbation of asthma Code(s): J45.901 - UNSPECIFIED ASTHMA WITH (ACUTE) EXACERBATION (5) Hypoxia Code(s): R09.02 - HYPOXEMIA Assessment/Plan Assessment/Plan ACUTE ASTHMATIC BRONCHITIS CLINICALLY IMPROVED COPD PUD HPL ANTIBIOTICS ICS/LABA NEO/ANTICHOLINERGIC DAILY PEAK FLOW O2 SUPPLEMENTATION START PREDNISONE CAN DISCHARGE HOME ON PREDNISONE TAPER DR DUNAWAY
[2016-08-09 14:11] VITALS: BP 125/68; PULSE 76
[2016-08-09 14:44] VITALS: TEMP 98.2
--- NOTE | 2016-08-09 14:49 | DS ---
Physical Exam: SUBJECTIVE: Patient seen and examined. Denies any shortness of breath or chest pain. OBJECTIVE: Pt seen ambulating around room without oxygen, no dyspnea or shortness of breath Vital Signs Period Temp Pulse Resp BP Sys/Muse Pulse Ox Last 24 Hr 98.2 F-98.5 F 75-83 17-22 123-135/57-84 96 PHYSICAL EXAM GENERAL: The patient is awake, alert, and fully oriented, in mild respiratory distress secondary to acute exacb. HEAD: Normal with no signs of trauma. EYES: PERRL, extraocular movements intact, sclera anicteric, conjunctiva clear. No ptosis. ENT: Ears normal, nares patent, oropharynx clear without exudates, moist mucous membranes. NECK: Trachea midline, full range of motion, supple. LUNGS: lungs diminished at the bases, mostly clear on upper lobes - less coughing, no wheezing HEART: Regular rate and rhythm, S1, S2 without murmur, rub or gallop. ABDOMEN: Soft, nontender, nondistended, normoactive bowel sounds, no guarding, no rebound, no hepatosplenomegaly, no masses. EXTREMITIES: 2+ pulses, warm, well-perfused, no edema. NEUROLOGICAL: Cranial nerves II through XII grossly intact. Normal speech, steady gait SKIN: Warm, dry, normal turgor, no rashes or lesions noted LABS Laboratory Results - last 24 hr 08/09/16 08/09/16 06:35 06:35 WBC 17.2 H RBC 4.14 Hgb 12.6 Hct 38.2 MCV 92.2 MCHC 33.0 RDW 14.4 Plt Count 193 MPV 8.9 Neutrophils % 83.2 H Lymphocytes % 9.3 Monocytes % 7.4 Eosinophils % 0.0 Basophils % 0.1 Sodium 140 Potassium 4.6 Chloride 101 Carbon Dioxide 28 Anion Gap 11 BUN 19 H Creatinine 0.7 Creat Clearance w eGFR > 60 Random Glucose 88 Calcium 8.5 Total Bilirubin 0.5 AST 13 L D ALT 47 D Alkaline Phosphatase 65 Total Protein 5.7 L Albumin 2.8 L HOSPITAL COURSE: Date of Admission:08/05/16 Date of Discharge: 08/09/16 Patient is a 76 year old female with a significant past medical history of COPD , asthma, stomach ulcers, hypercholesterolemia. She presents to the ED on 2016 complaining of shortness of breath with any exertion that progressively worsened. she also reports a productive cough with yellow sputum. As per the patient, her last COPD exacerbation was in September 2015. She is not home oxygen dependent. Imaging: Chest Xray 08/02/2016 - Apical lordotic projection, clear lungs, normal mediastinum, double lead PM and no signs of acute process Pulmonary: COPD/Asthma exacerbation with hypoxia - acute on chronic - much improved Assessment/Plan: Improving, pre and post oxygen stable on room air - tolerating room air without feeling short of breath cleared for d/c by pulmonary - to contine slow prednisone taper On Symbicort and Zafirlukast Incentive spirometer Close follow up with Dr. Ambriz Hematology: Leukocytosis - repeat cbc as outpatient Assessment/Plan: on steroids, clinically improving, afebrile GI: Stomach Ulcers Assessment/Plan: on protonix Disposition: Continue to take slow prednisone taper and follow up with Dr. Ambriz within 3 - 5 days after discharge. Full Code. Discharge Summary Reason For Visit: HYPOXIA COUGH EXACERBATION OF ASTHMA Current Active Problems Acute bronchitis (Acute) Acute exacerbation of COPD with asthma (Acute) Cough (Acute) Exacerbation of asthma (Acute) Hypoxia (Acute) Condition: Improved - Instructions Diet, Activity, Other Instructions: Please continue Prednisone taper as follows: August 10 Prednisone 60mg daily @ 8am July 13 Prednisone 60mg daily @ 8am July 14 Prednisone 55mg daily @ 8am July 15 Prednisone 55mg daily @ 8am July 16 Prednisone 50mg daily @ 8am July 17 Prednisone 50mg daily @ 8am July 18 Prednisone 45mg daily @ 8am July 19 Prednisone 45mg daily @ 8am August 18 Prednisone 40mg daily @ 8am August 19 Prednisone 40mg daily @ 8am July 22 Prednisone 30mg daily @ 8am August 21 Prednisone 30mg daily @ 8am August 22 Prednisone 20mg daily @ 8am August 23 Prednisone 20mg daily @ 8am August 24 Prednisone 10mg daily @ 8am August 25 Prednisone 10mg daily @ 8am August 26 Prednisone 5mg daily @ 8am August 27 Prednisone 5mg daily @ 8am - then stop Please take the Protonix while on the Prednisone. Please see Dr. Ambriz within 3 to 5 days after discharge. Please return to the ER if you experience worsening symptoms Referrals: Bandar Ambriz MD [Primary Care Provider] - Disposition: HOME - Home Medications Comprehensive Discharge Medication List: Ambulatory Orders Albuterol Sulfate Inhaler - [Ventolin HFA Inhaler -] 1 - 2 inh PO QID PRN #2 inhaler 12/08/15 Budesonide/Formeterol Fumarate [SYMBICORT 160/4.5mcg -] 1 puff IH BID #1 inhaler 12/08/15 Tiotropium Slater [Spiriva Respimat] 4 gm IH DAILY #1 mist.inhal 12/08/15 Zafirlukast 10 mg PO AM #30 tablet 12/08/15 Pravastatin Sodium 20 mg PO HS 08/02/16 Pantoprazole Sodium [Protonix -] 40 mg PO DAILY #30 tab 08/09/16 Prednisone See Taper PO DAILY #100 tablet 08/09/16 - Discharge Referral Referred to [facility] No
== END 2016-08-09 16:10 | disposition home or self-care (01) | DRG 191 ==
LOC: JER 20:21 → INTOOBSV 08-03 02:03 → JERBED 08-03 02:03 → UNDOADMOB 08-03 02:03 → JERBED 08-03 02:25 → UNDOADMIN 08-03 02:25 → JERBED 08-03 05:42 → J5S 08-03 09:04 → OBSVTOIN 08-05 09:10 → J5S 08-05 10:44
PROVIDERS: ADMIT Internal Medicine; ATTEND Nurse Practitioner Family
DX: J44.1 Chronic obstructive pulmonary disease with (acute) exacerbation (principal); J45.901 Unspecified asthma with (acute) exacerbation; J44.0 Chronic obstructive pulmonary disease with (acute) lower respiratory infection; J20.9 Acute bronchitis, unspecified; D72.829 Elevated white blood cell count, unspecified; K25.9 Gastric ulcer, unspecified as acute or chronic, without hemorrhage or perforation; E78.5 Hyperlipidemia, unspecified; Z87.891 Personal history of nicotine dependence
CPT/HCPCS: 36415; 71010-TC; 80048; 80053; 82550; 83735; 83880; 84100; 84484; 85025; 85610; 87254; 87804; 93005; 93010; 94010; 94150; 94640; 94761; 97116-GP; 97162-PG; 99284-25; G0008; G0378; Q2037

== ENCOUNTER 2017-08-16 18:26 | Emergency (ER) | payer OTHER ==
[2017-08-16] MEDS ORDERED: ASPIRIN 81 MG CHEWABLE TABLETS PO ONE (18:51)
--- NOTE | 2017-08-16 18:51 | PDOC ---
Rapid Medical Evaluation Time Seen by Provider: 08/16/17 18:48 Medical Evaluation: Allergies Allergy/AdvReac Type Severity Reaction Status Date / Time meperidine HCl [From Demerol] Allergy Verified 08/02/16 20:25 08/16/17 18:48 I have performed a brief in-person evaluation of this patient. The patient presents with a chief complaint of: bent down to pick something up, suddenly had sharp chest pain that "shot to left shoulder", and difficulty breathing, hx of copd, has pacemaker Pertinent physical exam findings: lungs ctab I have ordered the following: cardiac workup The patient will proceed to the ED for further evaluation. Discharge Disposition - Diagnosis Chest pain - Referrals - Patient Instructions - Post Discharge Activity
[2017-08-16 18:54] VITALS: TEMP 98.4; BMI 32.8
[2017-08-16 20:31] LABS: BASO % 0.7 % (0-2.0); EOS % 1.4 % (0-4.5); HEMATOCRIT 42.4 % (32.4-45.2); HEMOGLOBIN 14.3 GM/dL (10.7-15.3); LYMPH % 30.9 % (8-40); MCH 31.1 pg (25.7-33.7); MCHC 33.8 g/dl (32.0-36.0); MEAN PLT VOLUME 9.8 fl (7.5-11.1); MONO % 9.5 % (3.8-10.2); NEUT % 57.5 % (42.8-82.8); PLATELET COUNT 173 K/MM3 (134-434); RBC 4.61 M/mm3 (3.60-5.2); RDW 14.8 % (11.6-15.6); WHITE BLOOD COUNT 7.1 K/mm3 (4.0-10.0)
[2017-08-16 20:44] LABS: INR 0.99 (0.82-1.09); PROTHROMBIN TIME (PATIENT) 11.2 SEC (9.98-11.88)
[2017-08-16 21:08] LABS: ALBUMIN 3.8 g/dl (3.4-5.0); ANION GAP 3 (8-16); BLOOD UREA NITROGEN 10 mg/dL (7-18); CALCIUM 8.9 mg/dL (8.5-10.1); CHLORIDE 107 mmol/L (98-107); CO2 30 mmol/L (21-32); CREATININE 0.6 mg/dL (0.55-1.02); GLUCOSE,RANDOM 72 mg/dL (74-106); MAGNESIUM 2.1 mg/dL (1.8-2.4); POTASSIUM 4.7 mmol/L (3.5-5.1); SGOT/AST 16 U/L (15-37); SGPT/ALT 26 U/L (12-78); SODIUM 140 mmol/L (136-145)
[2017-08-16 21:12] LABS: ALK PHOS 103 U/L (45-117); BILIRUBIN,TOTAL 0.7 mg/dL (0.2-1.0)
--- NOTE | 2017-08-16 22:05 | PDOC ---
Attending Attestation - Resident Resident Name: Dean Carter - ED Attending Attestation I have performed the following: I have examined & evaluated the patient, The case was reviewed & discussed with the resident, I agree w/resident's findings & plan, Exceptions are as noted - HPI HPI: 08/16/17 22:00 "The patient is a 77 year old female, with a significant past medical history of asthma, COPD, stomach ulcers, hyperlipidemia. and a cardiac arrhythmia (s/p Atrial pacemaker), who presents to the emergency department with chest pain that started at approximately 18:30 while she was taking out the garbage. The patient reports bending over to cotton picker an object on the floor, when she developed a pinching left sided chest pain. The episode lasted about 5 minutes before resolving completely. Patient reports calling her Benefits Coordinator Dr. Hunter , who recommended the patient come to the ED for further evaluation. Patient denies any shortness of breath, diaphoresis, palpitations, or lower extremity edema. She denies any abdominal pain, nausea, or vomiting. She denies any fever , chills, or cough. She denies any recent travel or sick contacts. She has not had any recurrence of the pain. - Physicial Exam PE: 08/16/17 22:04 "GENERAL: Awake, alert, and fully oriented, in no acute distress. HEAD: No signs of trauma EYES: PERRLA, EOMI, sclera anicteric, conjunctiva clear ENT: Auricles normal inspection, hearing grossly normal, nares patent, oropharynx clear without exudates. Moist mucosa NECK: Nontender, no stepoffs, Normal ROM, supple, no lymphadenopathy, JVD, or masses LUNGS: Breath sounds equal, clear to auscultation bilaterally. No wheezes, and no crackles HEART: Regular rate and rhythm, normal S1 and S2, no murmurs, rubs or gallops ABDOMEN: Soft, nontender, normoactive bowel sounds. No guarding, no rebound. No masses EXTREMITIES: Normal range of motion, no edema. No clubbing or cyanosis. No cords, erythema, or tenderness NEUROLOGICAL: Cranial nerves II through XII intact. 5/5 strength and sensation in all extremities, Normal speech, normal gait, normal cerebellar function SKIN: Warm, Dry, normal turgor, no rashes or lesions noted. " - Medical Decision Making 08/16/17 22:05 77 F with 5 minute episode of pinching left sided chest pain while taking out the garbage. Pain is atypical in nature, likely msk. EKG without ischemic changes, making ACS unlikely. Pt's HEART score is 3. Pt without any clinical signs of DVT on exam. Pt without any SOB and normal vitals, making PE unlikely. - Labs, trop - CXR <Alexandre Torres - Last Filed: 08/17/17 00:33> Discharge Disposition - Discharge Dispostion Last Admission D/C Date: 08/09/16 <Alexandre Torres - Last Filed: 08/17/17 00:33> - Diagnosis Chest pain - Discharge Dispostion Disposition: HOME - Referrals Referrals: Bandar Ambriz MD [Primary Care Provider] - - Patient Instructions Printed Discharge Instructions: DI for Atypical Chest Pain Additional Instructions: Follow up with your primary care doctor or prevocational/rehabilitation counselor within 1 week for further work up of your chest pain. Even though your labwork and X ray were normal today, we cannot rule out all heart disease. You will need a stress test to further evaluate your heart. If you experience any recurrent chest pain, shortness of breath, palpitations, or any other concerning symptoms, return to the ER immediately. Thank you for allowing us to participate in your care today. Sincerely, Alexandre Torres MD - Post Discharge Activity Work/School Note: Back to Work Heart Score/ECG Review - History History: Slightly suspicious - Electrocardiogram EKG: Normal - Age Age: >/= 65 - Risk Factors Risk Factors Heart Score: Yes Hx Hypercholesterolemia Based on the list above the patient has:: 1-2 risk factors - Troponin Troponin: </= normal limit - Score Heart Score - Total: 3 - ECG Impressions Comment:: 08/16/17 22:04 A-paced, no ALAYNA/STDs, no TWIs, axis wnl, intervals wnl, rate 69 <Alexandre Torres - Last Filed: 08/17/17 00:33> Critical Care Time/MDM Note - Medical Decision Making Note: 08/16/17 23:02 Documentation prepared by Bassam Forte, acting as medical record retrieval specialist for Alexandre Torres MD. <Bassam Forte - Last Filed: 08/16/17 23:02>
--- NOTE | 2017-08-16 22:58 | PDOC ---
History of Present Illness - General History Source: Patient Exam Limitations: No Limitations <Bassam Forte - Last Filed: 08/16/17 23:04> <Dean Carter - Last Filed: 08/16/17 23:09> - General Chief Complaint: Chest Pain Stated Complaint: CHEST PAIN Time Seen by Provider: 08/16/17 18:48 - History of Present Illness Initial Comments: 08/16/17 22:58 73 yo female with pmh of asthma, COPD, stomach ulcers, hyperlipidemia. and a cardiac arrhythmia (s/p Atrial pacemaker), who presents to the ED with s/p episode of chest pain earlier this afternoon. 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 Patient reports her pain was sharp, nonradiating, and exacerbated when taking a breath. She reports episode lasted approximately 5 minutes. Patient reports calling her Director Of Music Dr. Hunter, who advised she come to the ED for further evaluation. Patient denies any shortness of breath, diaphoresis, palpitations, or lower extremity edema. She denies any abdominal pain, nausea, or vomiting. Allergies: Meperidine HCl Past Surgical History: Total left knee replacement Social History: Former smoker. No ETOH or recreational drug use. Director Of Music: Dr. Hunter (Bassam Forte) Past History <Bassam Forte - Last Filed: 08/16/17 23:04> - Past Medical History Asthma: Yes Cancer: Yes COPD: Yes GI Disorders: Yes (STOMACH ULCER) Hypercholesterolemia: Yes - Surgical History Orthopedic Surgery: (Total knee replcement left) - Immunization History Immunization Up to Date: No - Suicide/Smoking/Psychosocial Hx Smoking History: Former smoker Have you smoked in the past 12 months: No If you are a former smoker, when did you quit?: 30 yr Information on smoking cessation initiated: No Hx Alcohol Use: No Drug/Substance Use Hx: No Substance Use Type: None <Dean Carter - Last Filed: 08/16/17 23:09> - Past Medical History Allergies/Adverse Reactions: Allergies Allergy/AdvReac Type Severity Reaction Status Date / Time meperidine HCl [From Demerol] Allergy Verified 08/02/16 20:25 Home Medications: Ambulatory Orders Albuterol Sulfate Inhaler - [Ventolin HFA Inhaler -] 1 - 2 inh PO QID PRN #2 inhaler 12/08/15 Budesonide/Formeterol Fumarate [SYMBICORT 160/4.5mcg -] 1 puff IH BID #1 inhaler 12/08/15 Tiotropium Liberty [Spiriva Respimat] 4 gm IH DAILY #1 mist.inhal 12/08/15 Zafirlukast 10 mg PO AM #30 tablet 12/08/15 Pravastatin Sodium 20 mg PO HS 08/02/16 Pantoprazole Sodium [Protonix -] 40 mg PO DAILY #30 tab 08/09/16 Prednisone See Taper PO DAILY #100 tablet 08/09/16 Cardiac Specific PMH - Complaint Specific PMHX Pacemaker: Yes (1 year ago) <Dean Carter - Last Filed: 08/16/17 23:09> Review of Systems - Review of Systems Able to Perform ROS?: Yes Constitutional: No: Chills, Fever Respiratory: No: Shortness of Breath Cardiac (ROS): Yes: See HPI, Chest Pain. No: Edema, Irregular Heart Rate, Palpitations ABD/GI: No: Nausea, Vomiting Endocrine: No: Excessive Sweating All Other Systems: Reviewed and Negative <Bassam Forte - Last Filed: 08/16/17 23:04> *Physical Exam <Bassam Forte - Last Filed: 08/16/17 23:04> <Dean Carter - Last Filed: 08/16/17 23:09> - Vital Signs Last Vital Signs Temp Pulse Resp BP Pulse Ox 98.4 F 70 18 141/84 98 08/16/17 18:35 08/16/17 22:24 08/16/17 22:24 08/16/17 22:24 08/16/17 22:24 - Physical Exam Comments: 08/16/17 23:07 GENERAL: Awake, alert, and fully oriented, in no acute distress. HEAD: No signs of trauma EYES: PERRLA, EOMI, sclera anicteric, conjunctiva clear ENT: Auricles normal inspection, hearing grossly normal, nares patent, oropharynx clear without exudates. Moist mucosa NECK: Nontender, no stepoffs, Normal ROM, supple, no lymphadenopathy, JVD, or masses LUNGS: Breath sounds equal, clear to auscultation bilaterally. No wheezes, and no crackles HEART: Regular rate and rhythm, normal S1 and S2, no murmurs, rubs or gallops ABDOMEN: Soft, nontender, normoactive bowel sounds. No guarding, no rebound. No masses EXTREMITIES: Normal range of motion, no edema. No clubbing or cyanosis. No cords, erythema, or tenderness NEUROLOGICAL: Cranial nerves II through XII intact. 5/5 strength and sensation in all extremities, Normal speech, normal gait, normal cerebellar function SKIN: Warm, Dry, normal turgor, no rashes or lesions noted. " (Dean Carter) Heart Score/ECG Review - History History: Slightly suspicious - Electrocardiogram EKG: Normal - Age Age: >/= 65 - Risk Factors Risk Factors Heart Score: Yes Hx Hypercholesterolemia, Yes Hx Hypertension, Yes Positive family hx of cardiac disease <Dean Carter - Last Filed: 08/16/17 23:09> ED Treatment Course - LABORATORY CBC & Chemistry Diagram: 08/16/17 19:35 08/16/17 19:35 <Bassam Forte - Last Filed: 08/16/17 23:04> - LABORATORY CBC & Chemistry Diagram: 08/16/17 19:35 08/16/17 19:35 <Dean Carter - Last Filed: 08/16/17 23:09> - ADDITIONAL ORDERS Additional order review: Laboratory Results 08/16/17 08/16/17 08/16/17 19:35 19:35 19:35 PT with INR 11.20 INR 0.99 Sodium 140 Potassium 4.7 Chloride 107 Carbon Dioxide 30 Anion Gap 3 L BUN 10 Creatinine 0.6 Creat Clearance w eGFR > 60 Random Glucose 72 L Calcium 8.9 Magnesium 2.1 Total Bilirubin 0.7 D AST 16 ALT 26 Alkaline Phosphatase 103 Creatine Kinase 73 Troponin I < 0.02 B-Natriuretic Peptide 283.29 Total Protein 7.0 Albumin 3.8 08/16/17 19:35 RBC 4.61 MCV 92.0 MCHC 33.8 RDW 14.8 MPV 9.8 D Neutrophils % 57.5 D Lymphocytes % 30.9 D Monocytes % 9.5 Eosinophils % 1.4 D Basophils % 0.7 D - Medications Given in the ED: ED Medications Discontinued Medications Generic Name Dose Route Start Last Admin Trade Name Freq PRN Reason Stop Dose Admin Aspirin 162 mg 08/16/17 18:51 08/16/17 19:49 Asa - PO 08/16/17 18:52 Not Given ONCE ONE Medical Decision Making <Bassam Forte - Last Filed: 08/16/17 23:04> <Dean Carter - Last Filed: 08/16/17 23:09> - Medical Decision Making 08/16/17 23:09 77 F with 5 minute episode of pinching left sided chest pain while taking out the garbage. Pain is atypical in nature, likely msk. EKG without ischemic changes, making ACS unlikely. Pt's HEART score is 3. Pt without any clinical signs of DVT on exam. Pt without any SOB and normal vitals, making PE unlikely. - Labs, trop - CXR (Dean Carter) *DC/Admit/Observation/Transfer <Bassam Fotre - Last Filed: 08/16/17 23:04> <Dean Carter - Last Filed: 08/16/17 23:09> Diagnosis at time of Disposition: Chest pain - Referrals Referrals: Bandar Ambriz MD [Primary Care Provider] - - Patient Instructions - Post Discharge Activity
[2017-08-17 00:39] VITALS: BP 125/75; PULSE 69
--- NOTE | 2017-08-17 11:22 | EKG ---
Test Reason : Blood Pressure : / mmHG Vent. Rate : 069 BPM Atrial Rate : 069 BPM P-R Int : 216 ms QRS Dur : 090 ms QT Int : 392 ms P-R-T Axes : 035 -22 038 degrees QTc Int : 420 ms Atrial-paced rhythm with prolonged AV conduction ABNORMAL ECG WHEN COMPARED WITH ECG OF 03-AUG-2016 00:16, NO SIGNIFICANT CHANGE WAS FOUND Confirmed by NORRIS GOMEZ MD ([id number]) on 08/17/2017 11:21:40 AM Referred By: Confirmed By:NORRIS GOMEZ MD
== END 2017-08-17 00:39 | disposition home or self-care (01) ==
LOC: JER 18:26
DX: R07.89 Other chest pain (principal); X50.9XXA Other and unspecified overexertion or strenuous movements or postures, initial encounter; Y93.E9 Activity, other interior property and clothing maintenance; Y92.038 Other place in apartment as the place of occurrence of the external cause; Y99.8 Other external cause status; I10 Essential (primary) hypertension; E78.5 Hyperlipidemia, unspecified; J45.909 Unspecified asthma, uncomplicated; J44.9 Chronic obstructive pulmonary disease, unspecified; Z95.0 Presence of cardiac pacemaker; Z96.652 Presence of left artificial knee joint; Z87.891 Personal history of nicotine dependence
CPT/HCPCS: 36415; 71046-TC-FY; 80053; 82550; 83735; 83880; 84484; 85025; 85610; 93005; 93010; 99283-25

== ENCOUNTER 2018-05-01 14:17 | Inpatient (IN) | payer OTHER ==
[2018-05-01] MEDS ORDERED: methylPREDNISolone NA SUCC 125 MG/2 ML VIAL IVPB ONE (14:31)
[2018-05-01] MEDS ORDERED: ALBUTEROL SO4 2.5/IPRATROPIUM 0.5 INH SOL 3 ML VIAL.NEB. NEB ONE ×5 (14:31→18:01)
--- NOTE | 2018-05-01 14:31 | PDOC ---
History of Present Illness - General Chief Complaint: Shortness of Breath Stated Complaint: COPD Time Seen by Provider: 05/01/18 14:24 History Source: Patient Exam Limitations: No Limitations - History of Present Illness Initial Comments: 78 yo F w a sig pmh of Asthma, COPD, GERD, PUD, HLD, cardiac arrhythmia s/p atrial pacemaker presents to the ED with the chief complaint of Shortness of breath and significant wheezing. She reports that she began wheezing 3 days prior, called her PCP - Dr. Ambriz and scheduled an appointment with him for . She came into to the ER today because at jain she was extremely short of breath and was wheezing very loudly. She has also been experiencing a dry cough for the past few days. She denies recent fevers, chills, infections, chest pain, back pain, abdominal pain, headache, neck pain, nausea, vomiting, diaphoresis, dysuria, frequency, urgency, diarrhea or constipation. PCP: Dr. Ambriz. Allergies: Meperidine HCl. Past Surgical History: Total left knee replacement s/p bone cancer. Social History: Former smoker. No current ETOH or recreational drug use. Past History - Past Medical History Allergies/Adverse Reactions: Allergies Allergy/AdvReac Type Severity Reaction Status Date / Time meperidine HCl [From Demerol] Allergy Verified 05/01/18 15:07 Home Medications: Ambulatory Orders Albuterol Sulfate Inhaler - [Ventolin HFA Inhaler -] 1 - 2 inh PO QID PRN #2 inhaler 12/08/15 Budesonide/Formeterol Fumarate [SYMBICORT 160/4.5mcg -] 1 puff IH BID #1 inhaler 12/08/15 Zafirlukast 10 mg PO AM #30 tablet 12/08/15 Famotidine 20 mg PO DAILY 05/01/18 Asthma: Yes Cancer: Yes COPD: Yes GI Disorders: Yes (STOMACH ULCER) HTN: Yes Hypercholesterolemia: Yes - Surgical History Orthopedic Surgery: (Total knee replcement left) - Immunization History Immunization Up to Date: No - Suicide/Smoking/Psychosocial Hx Smoking History: Former smoker Have you smoked in the past 12 months: No If you are a former smoker, when did you quit?: 30 yr Hx Alcohol Use: No Drug/Substance Use Hx: No Substance Use Type: None Review of Systems - Review of Systems Able to Perform ROS?: Yes Comments:: CONSTITUTIONAL: Absent: fever, no chills, no fatigue EYES: Absent: visual changes ENT: Absent: ear pain, no sore throat CARDIOVASCULAR: Absent: chest pain, no palpitations RESPIRATORY: Present: cough, SOB GI: Absent: abdominal pain, no nausea, no vomiting, no constipation, no diarrhea GENITOURINARY: Absent: dysuria, no frequency, no hematuria MUSKULOSKELETAL: Absent: back pain, no arthralgia, no myalgia SKIN: Absent: rash NEURO: Absent: headache *Physical Exam - Physical Exam Comments: GENERAL: Well-appearing, well-nourished. Mild distress. HEENT: Normocephalic, atraumatic. PERRL, EOM intact. CARDIOVASCULAR: Normal S1, S2. Regular rate and rhythm. PULMONARY: Diffuse wheezing throughout all lung [place], much worse on expiration. ABDOMEN: Soft, mildly distended, non-tender. EXTREMITIES: Normal ROM in all four extremities. No gross deformities. SKIN: Warm, dry. No rash NEUROLOGICAL: No focal neurological deficits. ED Treatment Course - LABORATORY CBC & Chemistry Diagram: 05/01/18 14:50 05/01/18 14:50 Medical Decision Making - Medical Decision Making 78 yo F w a sig pmh of Asthma, COPD, GERD, PUD, HLD, cardiac arrhythmia s/p atrial pacemaker presents to the ED with the chief complaint of Shortness of breath and significant wheezing. DDx IBNLT: COPD vs asthma exacerbation, ACS, PNA, pneumothorax, URI, other infection, heart failure. Plan: Cbc, Cmp, Trop, BNP, vbg, CXR, EKG, duoneb, steroids, cardiac monitoring, peak flow, re-assess. Labs unremarkable. trop x 2 negative Patient still wheezing significantly after 3 duonebs, steroids. She experienced an acute episode of chest pain after eating chicken. - [place] much better after receiving pepcid, tylenol and maalox. Will admit patient to tele obs for further observation and care *DC/Admit/Observation/Transfer Diagnosis at time of Disposition: Acute exacerbation of COPD with asthma, Exacerbation of asthma - Discharge Dispostion Decision to Admit order: Yes - Referrals - Patient Instructions - Post Discharge Activity
[2018-05-01] MEDS ORDERED: methylPREDNISolone NA SUCC 125 MG/2 ML VIAL ONE (14:38)
[2018-05-01 14:57] LABS: BASO % 1.1 % (0-2.0); EOS % 7.5 % (0-4.5); HEMOGLOBIN 14.5 GM/dL (10.7-15.3); LYMPH % 23.9 % (8-40); MCH 29.8 pg (25.7-33.7); MEAN CELL VOLUME 90.4 fl (80-96); MEAN PLT VOLUME 9.2 fl (7.5-11.1); MONO % 8.6 % (3.8-10.2); NEUT % 58.9 % (42.8-82.8); PLATELET COUNT 175 K/MM3 (134-434); RBC 4.87 M/mm3 (3.60-5.2); RDW 14.6 % (11.6-15.6); WHITE BLOOD COUNT 9.4 K/mm3 (4.0-10.0)
[2018-05-01 14:58] LABS: VENOUS PC02 48.9 mmHg (38-52); VENOUS PH 7.39 (7.32-7.42)
[2018-05-01 14:59] LABS: VENOUS PO2 30.3 mmHg (28-48)
--- NOTE | 2018-05-01 15:03 | PDOC ---
Attending Attestation - Resident Resident Name: BethirwinNaomyAlfred - ED Attending Attestation I have performed the following: I have examined & evaluated the patient, The case was reviewed & discussed with the resident, I agree w/resident's findings & plan, Exceptions are as noted - HPI HPI: 05/05/18 07:24 see note - Physicial Exam PE: 05/01/18 15:59 GENERAL: The patient is awake, alert, and fully oriented, HEAD: Normocephalic, atraumatic. EYES: extraocular movements intact, sclera anicteric, conjunctiva clear. ENT: Normal voice, Moist mucous membranes. NECK: Normal range of motion, supple LUNGS: Diffuse wheezing bilaterally, moderate respiratory distress HEART: Regular rate and rhythm, normal S1 and S2 without murmur, rub or gallop. ABDOMEN: Soft, nontender, normoactive bowel sounds. No guarding, no rebound. . No CVA tenderness EXTREMITIES: Normal range of motion, trace edema. no Calf tenderness, negative Homans NEUROLOGICAL: No facial assymetry, Normal speech, moving all 4 extremities spontaneously and symmetrically PSYCH: Normal mood, normal affect. SKIN: Warm, Dry, normal turgor, - Medical Decision Making 05/01/18 15:12 78y F asthma/copd, PUD, HL, arrthmia s/p PM presents with several days of sob/ wheezing/coughing productive of thick yellowish sputum. presents today due to feeling very sob/stover/wheezing when going to [employer]. denies any fevers, nasal congestion, body aches. pt was awaiting fu with dr. meléndez this week but her firiends convinced her to come back to the Ed. the patient denies any leg swelling, orthopnea, diarrhea, melena or numbness, tingling, weakness, chest pain 05/01/18 16:02 Suspect COPD exacerbation we'll obtain chest x-ray to rule out pneumonia, will give steroids, DuoNeb we'll reassess 05/01/18 17:38 The patient's blood work was reviewed it is unremarkable the patient's chest x- ray does not reveal any obvious infiltrate The patient's is hypoxic to 88% she does improve at 2 L will admit for further management of COPD exacerbation we'll give the patient azithromycin 05/01/18 18:55 pt had an episode of chest pain after eating pt felt better after vomiting x 1 repeat ekg is wnl will admit to tele for furthe rmanagement suspect GI cause, but will trend trops Heart Score/ECG Review - ECG Impressions Comment:: 05/01/18 16:00 Twelve-lead EKG was performed and reviewed by me. There is normal sinus rhythm with a normal rate. rate of 82 The axis is normal. The intervals are normal. There is normal R wave progression There are no ST or T wave abnormalities. Impression: Normal twelve-lead EKG 05/01/18 19:00 Repeat EKG performed at 1830 Sinus rhythm Rate of 81 unchanged from prior EKG
[2018-05-01 15:46] VITALS: BMI 33.3
[2018-05-01 16:14] LABS: ALBUMIN 3.7 g/dl (3.4-5.0); ALK PHOS 105 U/L (45-117); ANION GAP 6 MMOL/L (8-16); BILIRUBIN,TOTAL 0.6 mg/dL (0.2-1); BLOOD UREA NITROGEN 12 mg/dL (7-18); CALCIUM 9.2 mg/dL (8.5-10.1); CHLORIDE 107 mmol/L (98-107); CO2 28 mmol/L (21-32); CREATININE 0.9 mg/dL (0.55-1.3); GLUCOSE,RANDOM 98 mg/dL (74-106); POTASSIUM 4.6 mmol/L (3.5-5.1); SGOT/AST 16 U/L (15-37); SGPT/ALT 22 U/L (13-61); SODIUM 141 mmol/L (136-145); TOT PROT 6.8 g/dl (6.4-8.2)
[2018-05-01] MEDS ORDERED: ALBUTEROL SO4 0.083% IH SOL 2.5 MG/3 ML VIAL.NEB. NEB ONE (17:38)
[2018-05-01] MEDS ORDERED: AZITHROMYCIN IVPB 500 MG in DEXTROSE 5%-WATER - 250 ML IVPB ONE (17:38)
[2018-05-01] MEDS ORDERED: AZITHROMYCIN IVPB 500 MG/250 ML BAG IVPB ONE (18:01)
[2018-05-01] MEDS ORDERED: MAG HYDROX/AL HYDROX/SIMETH 30 ML UNIT-DOSE CUP PO ONE (18:37)
[2018-05-01] MEDS ORDERED: ACETAMINOPHEN 1000 MG/100 ML VIAL (NON FORMULARY) IVPB ONE (18:37)
[2018-05-01] MEDS ORDERED: FAMOTIDINE 20 MG/50 ML IVPB 20 MG/50 ML MG IVPB ONE ×2 (18:37→18:46)
[2018-05-01] MEDS ORDERED: MAG HYDROX/AL HYDROX/SIMETH 30 ML UNIT-DOSE CUP ONE (18:46)
[2018-05-01] MEDS ORDERED: ACETAMINOPHEN INJECTION 100 ML IVPB ONE (18:46)
[2018-05-01] MEDS ORDERED: ALBUTEROL SO4 8 GM HFA INHALER IH PRN ×2 (19:58→20:14)
--- NOTE | 2018-05-01 21:27 | HP ---
CHIEF COMPLAINT: worsening shortness of breath and wheezing for 3 days PCP: Dr. Pierce Photostat Operator Helper: Dr. Bertrand HISTORY OF PRESENT ILLNESS: 78 year old female with history of COPD, hyperlipidemia, GERD, permanent pacemaker implantation and total right knee replacemnet s/p bone cancer who presents with worsening shortness of breath and significant wheezing for 3 days. On arrival to the ER she was hypoxic. Venous blood gas revealed a CO2 - 48.9, HCO3 -28.9, and Po2 - 30.3. Hypoxemia and dyspnea has improved with oxygen therapy by nasal canula. She was given one dosage of IV Azithromycin . She denied orthopnea or paraoxysmal nocturnal dyspnea. Labs notable for a normal BNP and elevated esonophils. ER course was notable for: (1)COPD Excacerbation- Improved with oxygen therapy, duoned,i antobiotic, Recent Travel:Denies PAST MEDICAL HISTORY: COPD Hyperlipidemia PAST SURGICAL HISTORY: Pacemaker implantation Total right knee replacement S/P bone cancer Social History: Smoking:quit 40 years ago Alcohol:Denies Drugs: Denies Family History: Allergies meperidine HCl [From Demerol] Allergy (Verified 05/01/18 15:07) HOME MEDICATIONS: Home Medications Medication Instructions Recorded Albuterol Sulfate Inhaler - 1 - 2 inh PO QID PRN #2 inhaler 12/08/15 [Ventolin HFA Inhaler -] Budesonide/Formeterol Fumarate 1 puff IH BID #1 inhaler 12/08/15 [SYMBICORT 160/4.5mcg -] Zafirlukast 10 mg PO AM #30 tablet 12/08/15 Famotidine 20 mg PO DAILY 05/01/18 REVIEW OF SYSTEMS CONSTITUTIONAL: Absent: fever, chills, diaphoresis, generalized weakness, malaise, loss of appetite, weight change HEENT: Absent: rhinorrhea, nasal congestion, throat pain, throat swelling, difficulty swallowing, mouth swelling, ear pain, eye pain, visual changes CARDIOVASCULAR: Absent: chest pain, syncope, palpitations, irregular heart rate, lightheadedness , peripheral edema RESPIRATORY: shortness of breath with wheezing and dry cough Absent: abdominal pain, abdominal distension, nausea, vomiting, diarrhea, constipation, melena, hematochezia GENITOURINARY: Absent: dysuria, frequency, urgency, hesitancy, hematuria, flank pain, genital pain MUSCULOSKELETAL: Absent: myalgia, arthralgia, joint swelling, back pain, neck pain SKIN: Absent: rash, itching, pallor HEMATOLOGIC/IMMUNOLOGIC: Absent: easy bleeding, easy bruising, lymphadenopathy, frequent infections ENDOCRINE: Absent: unexplained weight gain, unexplained weight loss, heat intolerance, cold intolerance NEUROLOGIC: Absent: headache, focal weakness or paresthesias, dizziness, unsteady gait, seizure, mental status changes, bladder or bowel incontinence PSYCHIATRIC: Absent: anxiety, depression, suicidal or homicidal ideation, hallucinations. PHYSICAL EXAMINATION Vital Signs - 24 hr 05/01/18 05/01/18 05/01/18 14:17 16:00 16:15 Temperature 97.6 F Pulse Rate 71 Pulse Rate [ Apical] Respiratory 18 Rate Blood Pressure 147/78 Blood Pressure [Left Arm] O2 Sat by Pulse 94 L 88 L 95 Oximetry (%) 05/01/18 05/01/18 05/01/18 18:00 19:02 21:23 Temperature 98.2 F Pulse Rate Pulse Rate [ 88 66 89 Apical] Respiratory 20 22 H 22 H Rate Blood Pressure Blood Pressure 156/78 135/61 132/78 [Left Arm] O2 Sat by Pulse 96 96 96 Oximetry (%) GENERAL: awake, alert, and fully oriented no acute distress HEAD: normal with no signs of trauma EYES: pupils equal, round and reactive to light EARS, NOSE, THROAT: ears normal, nares patent, moist mucous membranes NECK: normal range of motion, supple without lymphadenopathy, JVD, or masses LUNGS: wheezing present HEART: regular rate and rhythm, normal S1 and S2 without murmur ABDOMEN: soft, nontender not distended, normoactive bowel sounds, no guarding, no rebound, no masses. MUSCULOSKELETAL: normal range of motion at all joints UPPER EXTREMITIES: 2+ pulses, warm, well-perfused No clubbing nail beds pink with good capillary refill LOWER EXTREMITIES: 2+ pulses, warm, well-perfused 1 + lower extremity edema present NEUROLOGICAL: normal speech no focal deficits PSYCHIATRIC: cooperative good eye contact appropriate mood and affect SKIN: Warm, dry, normal turgor, no rashes or lesions noted Laboratory Results - last 24 hr 05/01/18 05/01/18 05/01/18 14:50 14:50 14:50 WBC 9.4 RBC 4.87 Hgb 14.5 Hct 44.0 MCV 90.4 MCH 29.8 MCHC 33.0 RDW 14.6 Plt Count 175 MPV 9.2 Absolute Neuts (auto) 5.5 Neutrophils % 58.9 Lymphocytes % 23.9 D Monocytes % 8.6 Eosinophils % 7.5 H D Basophils % 1.1 Nucleated RBC % 0 VBG pH 7.39 POC VBG pCO2 48.9 POC VBG pO2 30.3 Mixed VBG HCO3 28.9 H Sodium 141 Potassium 4.6 Chloride 107 Carbon Dioxide 28 Anion Gap 6 L BUN 12 Creatinine 0.9 Creat Clearance w eGFR > 60 Random Glucose 98 Calcium 9.2 Total Bilirubin 0.6 AST 16 ALT 22 Alkaline Phosphatase 105 Troponin I < 0.02 B-Natriuretic Peptide 175.0 Total Protein 6.8 Albumin 3.7 05/01/18 19:00 WBC RBC Hgb Hct MCV MCH MCHC RDW Plt Count MPV Absolute Neuts (auto) Neutrophils % Lymphocytes % Monocytes % Eosinophils % Basophils % Nucleated RBC % VBG pH POC VBG pCO2 POC VBG pO2 Mixed VBG HCO3 Sodium Potassium Chloride Carbon Dioxide Anion Gap BUN Creatinine Creat Clearance w eGFR Random Glucose Calcium Total Bilirubin AST ALT Alkaline Phosphatase Troponin I < 0.02 B-Natriuretic Peptide Total Protein Albumin ASSESSMENT/PLAN: This is a 78 year old female with history of COPD, hyperlipidemia, and permanent pacemaker implantation who presents with worsening shortness of breath and wheezing . On arrival to the ER she was hypoxic. Arterial blood gas revealed a CO2 -48.9, HCO3 -28.9, and Po2 - 30.3. Hypoxemia and dyspnea has improved with oxygen therapy by nasal canula. Acute hypoxemic respiratory failure in setting of acute on chronic COPD Excacerbation Improved with oxygen therapy.Continue to monitor respiratory status. No evidence of leukocytosis or fever. She received one dosage of IV antibiotics and IV methyprednisolone. Continue with symbicort and duo nebulizers every 6 hours. Pulmonary- Dr. Pierce consulted. Mild Fluid Overload BNP is normal. She has lower extremity edema present. Will check echocardiogram to evaluate EF and valvular anatomy. Pacemaker Stable. Hyperlipidemia Currently not on statin therpy. Will defer management to her primary Crdiologist. DVT Propylaxis Continue with lovenox. FEN Oral intake of fluids. Electrolytes WNL. Visit type - Emergency Visit Emergency Visit: Yes ED Registration Date: 05/01/18 Care time: The patient presented to the Emergency Department on the above date and was hospitalized for further evaluation of their emergent condition. - New Patient This patient is new to me today: Yes Date on this admission: 05/01/18 - Critical Care Critical Care patient: No
[2018-05-01] MEDS ORDERED: ALBUTEROL SO4 0.042% IH SOL 1.25 MG/3 ML VIAL.NEB NEB PRN (21:54)
[2018-05-01] MEDS: BUDESONIDE/FORMETEROL FUMARATE 160/4.5 mcg INHALER IH SCH (22:30)
[2018-05-02 06:44] LABS: BASO % 0.2 % (0-2.0); HEMATOCRIT 40.7 % (32.4-45.2); HEMOGLOBIN 13.3 GM/dL (10.7-15.3); LYMPH % 9.1 % (8-40); MCH 29.6 pg (25.7-33.7); MCHC 32.8 g/dl (32.0-36.0); MEAN CELL VOLUME 90.4 fl (80-96); MEAN PLT VOLUME 9.6 fl (7.5-11.1); MONO % 3.1 % (3.8-10.2); NEUT % 87.6 % (42.8-82.8); PLATELET COUNT 172 K/MM3 (134-434); RDW 14.6 % (11.6-15.6); WHITE BLOOD COUNT 11.1 K/mm3 (4.0-10.0)
[2018-05-02 07:11] LABS: ANION GAP 7 MMOL/L (8-16); BLOOD UREA NITROGEN 15 mg/dL (7-18); CALCIUM 8.9 mg/dL (8.5-10.1); CHLORIDE 108 mmol/L (98-107); CO2 24 mmol/L (21-32); CREATININE 0.7 mg/dL (0.55-1.3); GLUCOSE,RANDOM 117 mg/dL (74-106); POTASSIUM 4.8 mmol/L (3.5-5.1); SODIUM 139 mmol/L (136-145)
[2018-05-02] MEDS: ALBUTEROL SO4 0.042% IH SOL 1.25 MG/3 ML VIAL.NEB NEB SCH ×2 (08:03→11:52)
--- NOTE | 2018-05-02 09:30 | PN ---
Progress Note, Physician Chief Complaint: EVENTS AND NOTES REVIEWED SOB/COUGH - Current Medication List Current Medications: Active Medications Albuterol Sulfate (Ventolin 0.042trength) -) 1 amp NEB RQID [facility] Last Admin: 05/02/18 08:03 Dose: 1 amp Budesonide/Formoterol Fumarate (Symbicort 160/4.5mcg -) 1 puff IH BID [facility] Last Admin: 05/01/18 22:30 Dose: 1 puff Enoxaparin Sodium (Lovenox -) 40 mg SQ DAILY [facility] Methylprednisolone Sodium Succinate (Solu-Medrol -) 60 mg IVPUSH DAILY [facility] Montelukast Sodium (Singulair -) 10 mg PO DAILY [facility] Ranitidine HCl (Zantac -) 150 mg PO DAILY [facility] - Objective Vital Signs: Vital Signs Temperature 98.5 F 05/02/18 05:39 Pulse Rate 76 05/02/18 05:39 Respiratory Rate 20 05/02/18 05:39 Blood Pressure 122/72 05/02/18 05:39 O2 Sat by Pulse Oximetry (%) 95 05/01/18 22:00 Constitutional: Yes: Mild Distress Eyes: Yes: WNL HENT: Yes: WNL Neck: Yes: WNL Cardiovascular: Yes: Pulse Irregular Respiratory: Yes: Diminished Gastrointestinal: Yes: WNL Genitourinary: Yes: Incontinence Extremities: Yes: Other Integumentary: Yes: Rash Wound/Incision: Yes: Other Neurological: Yes: Pre-Existing Deficit Labs: CBC, BMP 05/02/18 05:30 05/02/18 05:30 Problem List - Problems (1) Acute exacerbation of COPD with asthma Code(s): J44.1 - CHRONIC OBSTRUCTIVE PULMONARY DISEASE W (ACUTE) EXACERBATION; J45.901 - UNSPECIFIED ASTHMA WITH (ACUTE) EXACERBATION (2) Exacerbation of asthma Code(s): J45.901 - UNSPECIFIED ASTHMA WITH (ACUTE) EXACERBATION (3) GERD (gastroesophageal reflux disease) Code(s): K21.9 - GASTRO-ESOPHAGEAL REFLUX DISEASE WITHOUT ESOPHAGITIS (4) H/O cardiac arrhythmia Code(s): Z86.79 - PERSONAL HISTORY OF OTHER DISEASES OF THE CIRCULATORY SYSTEM (5) PUD (peptic ulcer disease) Code(s): K27.9 - PEPTIC ULC, SITE UNSP, UNSP AC OR CHR, W/O HEMOR OR PERF (6) Pacemaker Code(s): Z95.0 - PRESENCE OF CARDIAC PACEMAKER Assessment/Plan IV ABX NEB PULM/ID CONSULT AND FOLLOW UP CHECK CT SCAN PENDING DVT PROPHYLAXIS OOB TO CHAIR
[2018-05-02] MEDS: methylPREDNISolone NA SUCC 40 MG/1 ML VIAL IVPUSH SCH (10:08)
[2018-05-02] MEDS: MONTELUKAST NA 10 MG TABLET PO SCH (10:08)
[2018-05-02] MEDS: ENOXAPARIN NA (PORCINE) 40 MG/0.4 ML DISP.SYRIN SQ SCH (10:09)
[2018-05-02] MEDS: RANITIDINE HCL 150 MG TABLET (FP) PO SCH (10:09)
[2018-05-02] MEDS: BUDESONIDE/FORMETEROL FUMARATE 160/4.5 mcg INHALER IH SCH ×2 (10:09→21:18)
--- NOTE | 2018-05-02 12:23 | PN ---
Progress Note (short form) - Note Progress Note: PULMONARY CONSULTATION DICTATED 05/02/18 IMP ASTHMA/COPD EXACERBATION LIKELY URI H/O CARDIAC ARRHYTHMIA GERD PUD PLAN IV STEROIDS INHALED BRONCHODILATORS O2 SPUTUM C+S ABX CHEST CT MONITOR PEAK FLOW DR DUNAWAY Problem List - Problems (1) URI (upper respiratory infection) Code(s): J06.9 - ACUTE UPPER RESPIRATORY INFECTION, UNSPECIFIED (2) Acute exacerbation of COPD with asthma Code(s): J44.1 - CHRONIC OBSTRUCTIVE PULMONARY DISEASE W (ACUTE) EXACERBATION; J45.901 - UNSPECIFIED ASTHMA WITH (ACUTE) EXACERBATION (3) Cough Code(s): R05 - COUGH (4) GERD (gastroesophageal reflux disease) Code(s): K21.9 - GASTRO-ESOPHAGEAL REFLUX DISEASE WITHOUT ESOPHAGITIS (5) PUD (peptic ulcer disease) Code(s): K27.9 - PEPTIC ULC, SITE UNSP, UNSP AC OR CHR, W/O HEMOR OR PERF (6) Pacemaker Code(s): Z95.0 - PRESENCE OF CARDIAC PACEMAKER (7) H/O cardiac arrhythmia Code(s): Z86.79 - PERSONAL HISTORY OF OTHER DISEASES OF THE CIRCULATORY SYSTEM
--- NOTE | 2018-05-02 13:48 | CONS ---
DATE OF CONSULTATION: 05/02/2018 PULMONARY CONSULTATION REFERRING PHYSICIAN: Conchis Calvo MD HISTORY OF PRESENT ILLNESS: The patient is a 78-year-old white female with a past medical history of asthma, COPD, GERD, peptic ulcer disease, hypertension, hyperlipidemia, cardiac arrhythmia status post permanent pacemaker and a history of bone cancer status post surgery with right lower extremity fusion, admitted to [facility] with a complaint of a two- to three-day history of increasing shortness of breath, cough and bronchospasm. The patient states she was doing well until approximately three days prior to admission when she started developing shortness of breath and a cough productive of yellowish-green sputum. She also complained of increasing shortness of breath and wheezing. She made an appointment to see her PMD on her symptoms continued to worsen, at which time she presented to the emergency room and was admitted for further therapy. The patient denies any fevers, chills, nausea, vomiting or diaphoresis. She denies hemoptysis. She has a history of tobacco use but quit greater than 40 years ago. She has no history of occupational exposure to chemicals or fumes. On admission, she was placed on inhaled bronchodilators and IV steroids with good clinical response. PAST MEDICAL HISTORY: Again, this includes COPD/asthma, GERD, peptic ulcer disease, hypertension, hyperlipidemia, cardiac arrhythmia status post permanent pacemaker , a history of bone cancer status post surgery, right lower extremity fusion. No chemotherapy or radiation therapy postoperatively. REVIEW OF SYSTEMS: Positive for cough, shortness of breath. No fever or chills. Positive for sputum, no hemoptysis. No abdominal pain. No significant lower extremity edema. CURRENT MEDICATIONS: Symbicort 160/4.5, Solu-Medrol, Lovenox, albuterol, Zantac and Singulair. PHYSICAL EXAMINATION: General: The patient is a well-developed, well-nourished female, awake and alert, in no acute distress. Vital Signs: She is afebrile. Blood pressure is 123/71, respiratory rate 20, O2 saturation is 95% on 2 liters of oxygen. HEENT: Head is normocephalic, atraumatic. Neck: Supple. Heart: Regular. S1, S2. Chest: She has diffuse bilateral wheezes. Abdomen: Soft. Bowel sounds are positive. Extremities: No cyanosis or edema. Note that the right lower extremity is fused and there is trace edema. A chest x-ray shows no infiltrates or effusions. LABORATORY: WBC is 11.1, hemoglobin 13.3, hematocrit 40.7, platelet count of 172,000. There are 87 polys, 9 lymphs and 3 monocytes. IMPRESSION: 1. Acute exacerbation of chronic obstructive pulmonary disease/ asthma, likely secondary to upper respiratory infection. 2. History of cardiac arrhythmia status post permanent pacemaker. 3. Peptic ulcer disease. 4. Gastroesophageal reflux disease. 5. Hyperlipidemia. 6. Cardiac arrhythmia status post pacemaker. PLAN: 1. IV steroids and inhaled bronchodilators. 2. Supplemental O2. 3. Sputum for culture and sensitivity. 4. Antibiotics. 5. Obtain a CT scan of the chest. 6. Monitor peak flow. BILLY DUNAWAY M.D. [id number] MTDD
--- NOTE | 2018-05-02 15:15 | CON.CARD ---
Consult Consult Specialty:: Cardiology Referred by:: Nirali Daniel Reason for Consultation:: SOB - History of Present Illness Chief Complaint: SOB History of Present Illness: 78 year old female with a pmhx of asthma, copd, gerd, pud, hld, h/o bone cancer 54 years ago, and h/o bradycardia s/p ppm who presents with wheezing. Not feeling well for 3 days with sob, wheezing, and productive cough with yellow sputum. No chest pain. No syncope. No LE edema. - History Source History Provided By: Patient, Medical Record - Past Medical History Pulmonary: Yes: Asthma, COPD. No: O2 Dependent - Alcohol/Substance Use Hx Alcohol Use: No - Smoking History Smoking history: Former smoker Have you smoked in the past 12 months: No If you are a former smoker, when did you quit?: 30 yr Home Medications - Allergies Allergies/Adverse Reactions: Allergies Allergy/AdvReac Type Severity Reaction Status Date / Time meperidine HCl [From Demerol] Allergy Verified 05/01/18 15:07 - Home Medications Home Medications: Ambulatory Orders Albuterol Sulfate Inhaler - [Ventolin HFA Inhaler -] 1 - 2 inh PO QID PRN #2 inhaler 12/08/15 Budesonide/Formeterol Fumarate [SYMBICORT 160/4.5mcg -] 1 puff IH BID #1 inhaler 12/08/15 Zafirlukast 10 mg PO AM #30 tablet 12/08/15 Famotidine 20 mg PO DAILY 05/01/18 Vital Signs: Vital Signs Temperature 98.4 F 05/02/18 14:43 Pulse Rate 89 05/02/18 14:43 Respiratory Rate 20 05/02/18 14:43 Blood Pressure 131/78 05/02/18 14:43 O2 Sat by Pulse Oximetry (%) 95 05/02/18 09:00 Constitutional: Yes: No Distress Neck: Yes: Supple Respiratory: Yes: CTA Bilaterally Gastrointestinal: Yes: Soft Cardiovascular: Yes: Regular Rate and Rhythm JVD: No Carotid Bruit: No PMI: Non-Displaced Heart Sounds: Yes: S1, S2 Murmur: Yes: Systolic Murmur (+2/6 HSM RUSB) Edema: No - Other Data Labs, Other Data: CBC, BMP 05/02/18 05:30 05/02/18 05:30 Troponin, BNP 05/01/18 05/01/18 14:50 19:00 Troponin I < 0.02 < 0.02 B-Natriuretic Peptide 175.0 Troponin, BNP 05/01/18 05/01/18 14:50 19:00 Troponin I < 0.02 < 0.02 B-Natriuretic Peptide 175.0 Imaging - Results Chest X-ray: Report Reviewed Assessment/Plan 78 year old female with a pmhx of asthma, copd, gerd, pud, hld, h/o bone cancer 54 years ago, and h/o bradycardia s/p ppm who presents with wheezing. Not feeling well for 3 days with sob, wheezing, and productive cough with yellow sputum. No chest pain. No syncope. No LE edema. 1) SOB -appears to be COPD exacerbation based on history. No signs of significant chf on exam. BP wnl BNP normal level -No ekg in chart would get an ekg to confirm no changes. In past a paced. -Patient with a 2/6 systolic murmur in RUSB. Likely not significant as patient follows with Dr. Hunter and has routine testing done. Echo already done today and if no significant findings on echo than no further cardiac testing. F/u pulm regarding COPD management -Has appt on Monday with Dr. Hunter for cardiology follow up. Will sign off if echocardiogram unremarkable
[2018-05-02] MEDS: ALBUTEROL SO4 2.5/IPRATROPIUM 0.5 INH SOL 3 ML VIAL.NEB. NEB PRN (15:37)
--- NOTE | 2018-05-02 16:32 | PN ---
Progress Note (short form) - Note Progress Note: ID consult dictated imp/reccd acute exacerbation of COPD bronchitis/r/o pneumonia history of PPM got zithromax in ED f/u chest ct today-my reading- no infiltrates will continue po zithromax Problem List - Problems (1) Acute exacerbation of COPD with asthma Code(s): J44.1 - CHRONIC OBSTRUCTIVE PULMONARY DISEASE W (ACUTE) EXACERBATION; J45.901 - UNSPECIFIED ASTHMA WITH (ACUTE) EXACERBATION (2) Acute bronchitis Code(s): J20.9 - ACUTE BRONCHITIS, UNSPECIFIED
[2018-05-02] MEDS ORDERED: CEFTRIAXONE 1 GM in DEXTROSE 5%-WATER - 50 ML IVPB SCH (16:45)
--- NOTE | 2018-05-02 17:24 | CONS ---
DATE OF CONSULTATION: REQUESTED BY: Hospitalist service. This is a 78-year-old woman with a history of COPD, hyperlipidemia, GERD, permanent pacemaker. She has been having worsening cough with green sputum and wheezing for 3 days. No fevers. This happens to her frequently. Last month she reports, before , she made weekly visits to see Dr. Ambriz for the same, was given some oral antibiotics and steroids at that time, with improvement. She now reports her symptoms recurred over the last 3 days and have been worsening and she came to the emergency room. There is no history of any recent travel. She lives alone. She is retired. She worked as a reinforcing steel erector. She was a former smoker, she stopped 40 years ago. She had exposure to secondhand smoke from her boss. There is no history of any travel or sick contacts. Her past medical history is notable for COPD and hyperlipidemia as well as GERD. SURGICAL HISTORY: Pacemaker and right total knee replacement. SOCIAL HISTORY: She stopped smoking 40 years ago. No history of substance use. She lives alone, and she is a retired reinforcing steel erector. She is allergic to DEMEROL. Medications at home include albuterol, Symbicort, zafirlukast, and famotidine. Review of systems is notable for wheezing and she has a cough productive of green sputum. She has no fever. She has no nausea, vomiting, diarrhea or dysuria. She had an episode of chest pain yesterday, which resolved after she vomited. PHYSICAL EXAMINATION: Vital Signs: Temperature is 98.4. Pulse 89. Blood pressure 131/78. Respiratory rate 20. She is saturating 95% on 2 L. She does not use oxygen at home. HEENT: She is normocephalic. Eyes are anicteric. She has no thrush. Neck: Supple. Lungs: Scattered rhonchi and wheezes. Heart: Regular rate and rhythm. Abdomen: Soft, nontender. Extremities: Trace edema. She reports she has had weight gain this year. Labs are notable for a white count 11.1, hemoglobin 13.3, platelets 172. Her chemistries are notable for normal LFTs, BUN of 15, and creatinine 0.7. No cultures have been sent. She had a chest x-ray done this morning that was unremarkable; a CAT scan, the results of which are pending but on my review, reveal no gross infiltrate. In summary, this is a 78-year-old woman admitted with an acute COPD exacerbation, bronchitis, less likely pneumonia, history of permanent pacemaker. She got Zithromax last night in the emergency room. Would follow up her chest CT, but I do not see any evidence of pneumonia. Would continue oral Zithromax 250 a day for another 4 days. MAGNUS PETERS M.D. [id number]
[2018-05-02] MEDS: AZITHROMYCIN 250 MG TABLET PO SCH (17:57)
--- NOTE | 2018-05-02 18:47 | ECHO ---
Name: ROSALIND VÁSQUEZ Exam:Adult Echocardiogram Study Date: 05/02/2018 10:22 AM Age: 78 yrs Reason For Study: edema Height: 63 in Weight: 188 lb BSA: 1.9 m2 MMode/2D Measurements & Calculations IVSd: 0.84 cm Ao root diam: 2.9 cm LVIDd: 4.6 cm LA dimension: 3.5 cm LVIDs: 2.5 cm ACS: 1.7 cm LVPWd: 0.81 cm IVSs: 1.2 cm LVPWs: 1.3 cm EDV(Teich): 97.8 ml ESV(Teich): 23.0 ml LVOT diam: 2.0 cm Doppler Measurements & Calculations MV E max jaylan: 100.0 cm/sec Ao V2 max: 200.9 cm/sec MV A max jaylan: 106.4 cm/sec Ao max P.2 mmHg MV E/A: 0.94 Ao V2 mean: 145.8 cm/sec Ao mean P.6 mmHg Ao V2 VTI: 43.6 cm LYNDA(I,D): 1.8 cm2 LYNDA(V,D): 1.9 cm2 LV V1 max P.7 mmHg MR max jaylan: 456.1 cm/sec LV V1 mean P.9 mmHg MR max P.2 mmHg LV V1 max: 129.0 cm/sec LV V1 mean: 92.6 cm/sec LV V1 VTI: 26.6 cm SV(LVOT): 80.5 ml TR max jaylan: 211.8 cm/sec TR max P.0 mmHg Med Peak E' Jaylan: 7.9 cm/sec Med E/e': 12.7 Lat Peak E' Jaylan: 6.7 cm/sec Lat E/e': 14.9 Left Ventricle The left ventricle is normal in size. There is borderline concentric left ventricular hypertrophy. Th e left ventricular ejection fraction is normal. Ejection Fraction = 65-70%. Grade I diastolic dysfunction, ( abnormal relaxation pattern). The left ventricular wall motion is normal. Right Ventricle The right ventricle is grossly normal size. The right ventricular systolic function is normal. Atria The left atrium is mildly dilated. There is no Doppler evidence for an atrial septal defect. Mitral Valve There is mild mitral valve thickening. There is mild to moderate mitral regurgitation. Tricuspid Valve There is mild tricuspid regurgitation. Right ventricular systolic pressure is normal. Aortic Valve There is mild to moderate aortic valve thickening. Mild valvular aortic stenosis. Mean pressure gradi ent 11 mmHg Peak pressure gradient 18 mmHg. Mild aortic regurgitation. Pulmonic Valve The pulmonic valve is not well visualized. Trace to mild pulmonic valvular regurgitation. Great Vessels The aortic root is normal size. Pericardium/Pleura There is no pericardial effusion. Interpretation Summary The left ventricle is normal in size. There is borderline concentric left ventricular hypertrophy. The left ventricular ejection fraction is normal. Ejection Fraction = 65-70%. Grade I diastolic dysfunction, (abnormal relaxation pattern). The left ventricular wall motion is normal. The right ventricular systolic function is normal. The right ventricle is grossly normal size. The left atrium is mildly dilated. There is no Doppler evidence for an atrial septal defect. There is mild to moderate mitral regurgitation. There is mild tricuspid regurgitation. Right ventricular systolic pressure is normal. There is mild to moderate aortic valve thickening. Mild valvular aortic stenosis. Mean pressure gradient 11 mmHg Peak pressure gradient 18 mmHg Mild aortic regurgitation. Trace to mild pulmonic valvular regurgitation. The pulmonic valve is not well visualized. The aortic root is normal size. There is no pericardial effusion. Alin Will MD 05/02/2018 06:46 PM
--- NOTE | 2018-05-02 19:00 | EKG ---
Test Reason : Blood Pressure : / mmHG Vent. Rate : 082 BPM Atrial Rate : 082 BPM P-R Int : 158 ms QRS Dur : 090 ms QT Int : 382 ms P-R-T Axes : 048 -29 049 degrees QTc Int : 446 ms NORMAL SINUS RHYTHM NORMAL ECG WHEN COMPARED WITH ECG OF 16-AUG-2017 18:54, SINUS RHYTHM HAS REPLACED ELECTRONIC ATRIAL PACEMAKER Confirmed by ANTELMO GANNON MD ([id number]) on 05/02/2018 6:59:45 PM Referred By: Confirmed By:ANTELMO GANNON MD
[2018-05-03] MEDS: ALBUTEROL SO4 2.5/IPRATROPIUM 0.5 INH SOL 3 ML VIAL.NEB. NEB PRN (07:58)
[2018-05-03] MEDS: methylPREDNISolone NA SUCC 40 MG/1 ML VIAL IVPUSH SCH (09:58)
[2018-05-03] MEDS: MONTELUKAST NA 10 MG TABLET PO SCH (09:58)
[2018-05-03] MEDS: ENOXAPARIN NA (PORCINE) 40 MG/0.4 ML DISP.SYRIN SQ SCH (09:58)
[2018-05-03] MEDS: RANITIDINE HCL 150 MG TABLET (FP) PO SCH (09:59)
[2018-05-03] MEDS: AZITHROMYCIN 250 MG TABLET PO SCH (09:59)
[2018-05-03] MEDS: BUDESONIDE/FORMETEROL FUMARATE 160/4.5 mcg INHALER IH SCH ×2 (09:59→22:06)
--- NOTE | 2018-05-03 10:19 | PN ---
Progress Note, Physician Chief Complaint: AWAKE ALERT NO NEW EVENTS OVERNIGHT - Current Medication List Current Medications: Active Medications Albuterol/Ipratropium (Duoneb -) 1 amp NEB Q4H PRN PRN Reason: SHORTNESS OF BREATH Last Admin: 05/03/18 07:58 Dose: 1 amp Azithromycin (Zithromax -) 250 mg PO DAILY [facility] Stop: 05/05/18 11:00 Last Admin: 05/03/18 09:59 Dose: 250 mg Budesonide/Formoterol Fumarate (Symbicort 160/4.5mcg -) 1 puff IH BID [facility] Last Admin: 05/03/18 09:59 Dose: 1 puff Enoxaparin Sodium (Lovenox -) 40 mg SQ DAILY [facility] Last Admin: 05/03/18 09:58 Dose: 40 mg Methylprednisolone Sodium Succinate (Solu-Medrol -) 60 mg IVPUSH DAILY [facility] Last Admin: 05/03/18 09:58 Dose: 60 mg Montelukast Sodium (Singulair -) 10 mg PO DAILY [facility] Last Admin: 05/03/18 09:58 Dose: 10 mg Ranitidine HCl (Zantac -) 150 mg PO DAILY [facility] Last Admin: 05/03/18 09:59 Dose: 150 mg - Objective Vital Signs: Vital Signs Temperature 98 F 05/03/18 02:00 Pulse Rate 77 05/03/18 06:00 Respiratory Rate 18 05/03/18 06:00 Blood Pressure 128/76 05/03/18 02:00 O2 Sat by Pulse Oximetry (%) 93 L 05/03/18 09:00 Constitutional: Yes: Mild Distress Eyes: Yes: WNL HENT: Yes: WNL Neck: Yes: WNL Cardiovascular: Yes: WNL Respiratory: Yes: Rhonchi Gastrointestinal: Yes: WNL Genitourinary: Yes: WNL Musculoskeletal: Yes: Muscle Weakness Extremities: Yes: WNL Edema: No Peripheral Pulses WNL: Yes Integumentary: Yes: WNL Wound/Incision: Yes: Clean/Dry Neurological: Yes: WNL ...Motor Strength: WNL Psychiatric: Yes: WNL Labs: CBC, BMP 05/02/18 05:30 05/02/18 05:30 Problem List - Problems (1) Acute exacerbation of COPD with asthma Code(s): J44.1 - CHRONIC OBSTRUCTIVE PULMONARY DISEASE W (ACUTE) EXACERBATION; J45.901 - UNSPECIFIED ASTHMA WITH (ACUTE) EXACERBATION (2) Exacerbation of asthma Code(s): J45.901 - UNSPECIFIED ASTHMA WITH (ACUTE) EXACERBATION (3) GERD (gastroesophageal reflux disease) Code(s): K21.9 - GASTRO-ESOPHAGEAL REFLUX DISEASE WITHOUT ESOPHAGITIS (4) H/O cardiac arrhythmia Code(s): Z86.79 - PERSONAL HISTORY OF OTHER DISEASES OF THE CIRCULATORY SYSTEM (5) PUD (peptic ulcer disease) Code(s): K27.9 - PEPTIC ULC, SITE UNSP, UNSP AC OR CHR, W/O HEMOR OR PERF (6) Pacemaker Code(s): Z95.0 - PRESENCE OF CARDIAC PACEMAKER Assessment/Plan IV ABX NEB IV STEROIDS PULM/ID CONSULT AND FOLLOW UP CT SCAN GROUND GLASS CNRONIC CHANGES DVT PROPHYLAXIS OOB TO CHAIR
--- NOTE | 2018-05-03 12:23 | PN ---
Progress Note (short form) - Note Progress Note: PULMONARY Breathing much improved today. Less cough and wheezing. Has been ambulating. Vital Signs Period Temp Pulse Resp BP Sys/Muse Pulse Ox Last 24 Hr 98 F-98.4 F 73-89 18-20 128-140/76-78 93-94 Gen: NAD at rest Heart: RRR Lung: decreased breath sounds at the bases, no wheezes Abd: soft, nontender Ext: no edema CBC, BMP 05/02/18 05:30 05/02/18 05:30 Active Medications Albuterol/Ipratropium (Duoneb -) 1 amp NEB Q4H PRN PRN Reason: SHORTNESS OF BREATH Last Admin: 05/03/18 07:58 Dose: 1 amp Azithromycin (Zithromax -) 250 mg PO DAILY [facility] Stop: 05/05/18 11:00 Last Admin: 05/03/18 09:59 Dose: 250 mg Budesonide/Formoterol Fumarate (Symbicort 160/4.5mcg -) 1 puff IH BID [facility] Last Admin: 05/03/18 09:59 Dose: 1 puff Enoxaparin Sodium (Lovenox -) 40 mg SQ DAILY [facility] Last Admin: 05/03/18 09:58 Dose: 40 mg Methylprednisolone Sodium Succinate (Solu-Medrol -) 60 mg IVPUSH DAILY [facility] Last Admin: 05/03/18 09:58 Dose: 60 mg Montelukast Sodium (Singulair -) 10 mg PO DAILY [facility] Last Admin: 05/03/18 09:58 Dose: 10 mg Ranitidine HCl (Zantac -) 150 mg PO DAILY [facility] Last Admin: 05/03/18 09:59 Dose: 150 mg A/P Acute Asthma/COPD Exacerbation URI Lung Nodule GERD - can likely change steroids to PO prednisone 40mg in AM and taper as outpt - inhaled bronchodilators - O2 to keep SpO2 >90% - continue azithromycin - singulair - DVT prophylaxis - outpt f/u of lung nodule
[2018-05-04] MEDS: ALBUTEROL SO4 2.5/IPRATROPIUM 0.5 INH SOL 3 ML VIAL.NEB. NEB PRN ×2 (07:58→15:12)
[2018-05-04 09:57] VITALS: PULSE 82
[2018-05-04] MEDS: MONTELUKAST NA 10 MG TABLET PO SCH (10:01)
[2018-05-04] MEDS: methylPREDNISolone NA SUCC 40 MG/1 ML VIAL IVPUSH SCH (10:01)
[2018-05-04] MEDS: ENOXAPARIN NA (PORCINE) 40 MG/0.4 ML DISP.SYRIN SQ SCH (10:01)
[2018-05-04] MEDS: BUDESONIDE/FORMETEROL FUMARATE 160/4.5 mcg INHALER IH SCH (10:02)
[2018-05-04] MEDS: RANITIDINE HCL 150 MG TABLET (FP) PO SCH (10:02)
[2018-05-04] MEDS: AZITHROMYCIN 250 MG TABLET PO SCH (10:02)
--- NOTE | 2018-05-04 11:13 | PN ---
Progress Note, Physician History of Present Illness: PULMONARY ALERT,FEELING BETTER,LESS DYSPNEIC,LESS COUGH. - Current Medication List Current Medications: Active Medications Albuterol/Ipratropium (Duoneb -) 1 amp NEB Q4H PRN PRN Reason: SHORTNESS OF BREATH Last Admin: 05/04/18 07:58 Dose: 1 amp Azithromycin (Zithromax -) 250 mg PO DAILY [facility] Stop: 05/05/18 11:00 Last Admin: 05/04/18 10:02 Dose: 250 mg Budesonide/Formoterol Fumarate (Symbicort 160/4.5mcg -) 1 puff IH BID [facility] Last Admin: 05/04/18 10:02 Dose: 1 puff Enoxaparin Sodium (Lovenox -) 40 mg SQ DAILY [facility] Last Admin: 05/04/18 10:01 Dose: 40 mg Methylprednisolone Sodium Succinate (Solu-Medrol -) 60 mg IVPUSH DAILY [facility] Last Admin: 05/04/18 10:01 Dose: 60 mg Montelukast Sodium (Singulair -) 10 mg PO DAILY [facility] Last Admin: 05/04/18 10:01 Dose: 10 mg Ranitidine HCl (Zantac -) 150 mg PO DAILY [facility] Last Admin: 05/04/18 10:02 Dose: 150 mg - Objective Vital Signs: Vital Signs Temperature 98.1 F 05/04/18 09:56 Pulse Rate 82 05/04/18 09:56 Respiratory Rate 18 05/04/18 09:56 Blood Pressure 120/64 05/04/18 09:56 O2 Sat by Pulse Oximetry (%) 100 05/03/18 20:53 Constitutional: Yes: Well Nourished, Calm Eyes: Yes: WNL HENT: Yes: WNL Neck: Yes: WNL Cardiovascular: Yes: Regular Rate and Rhythm, S1, S2 Respiratory: Yes: Wheezes (FEW SCATTERED EDGARDO WHEEZES) Gastrointestinal: Yes: Normal Bowel Sounds, Soft Extremities: Yes: WNL Edema: Yes Labs: CBC, BMP 05/02/18 05:30 05/02/18 05:30 Problem List - Problems (1) URI (upper respiratory infection) Code(s): J06.9 - ACUTE UPPER RESPIRATORY INFECTION, UNSPECIFIED (2) Acute exacerbation of COPD with asthma Code(s): J44.1 - CHRONIC OBSTRUCTIVE PULMONARY DISEASE W (ACUTE) EXACERBATION; J45.901 - UNSPECIFIED ASTHMA WITH (ACUTE) EXACERBATION (3) Cough Code(s): R05 - COUGH (4) GERD (gastroesophageal reflux disease) Code(s): K21.9 - GASTRO-ESOPHAGEAL REFLUX DISEASE WITHOUT ESOPHAGITIS (5) PUD (peptic ulcer disease) Code(s): K27.9 - PEPTIC ULC, SITE UNSP, UNSP AC OR CHR, W/O HEMOR OR PERF (6) Pacemaker Code(s): Z95.0 - PRESENCE OF CARDIAC PACEMAKER (7) H/O cardiac arrhythmia Code(s): Z86.79 - PERSONAL HISTORY OF OTHER DISEASES OF THE CIRCULATORY SYSTEM Assessment/Plan IMP ASTHMA/COPD EXACERBATION LIKELY URI H/O CARDIAC ARRHYTHMIA GERD PUD [place] GROUND GLASS NODULE PLAN IV STEROIDS INHALED BRONCHODILATORS O2 PFTS OUTPATIENT ABX MONITOR PEAK FLOW F/U CHEST CT [address] DUNAWAY Problem List - Problems (1) URI (upper respiratory infection) Code(s): J06.9 - ACUTE UPPER RESPIRATORY INFECTION, UNSPECIFIED (2) Acute exacerbation of COPD with asthma Code(s): J44.1 - CHRONIC OBSTRUCTIVE PULMONARY DISEASE W (ACUTE) EXACERBATION; J45.901 - UNSPECIFIED ASTHMA WITH (ACUTE) EXACERBATION (3) Cough Code(s): R05 - COUGH (4) GERD (gastroesophageal reflux disease) Code(s): K21.9 - GASTRO-ESOPHAGEAL REFLUX DISEASE WITHOUT ESOPHAGITIS (5) PUD (peptic ulcer disease) Code(s): K27.9 - PEPTIC ULC, SITE UNSP, UNSP AC OR CHR, W/O HEMOR OR PERF (6) Pacemaker Code(s): Z95.0 - PRESENCE OF CARDIAC PACEMAKER (7) H/O cardiac arrhythmia Code(s): Z86.79 - PERSONAL HISTORY OF OTHER DISEASES OF THE CIRCULATORY SYSTEM
--- NOTE | 2018-05-04 12:03 | DS ---
Physical Examination Vital Signs: Vital Signs Temperature 98.1 F 05/04/18 09:56 Pulse Rate 82 05/04/18 09:56 Respiratory Rate 18 05/04/18 09:56 Blood Pressure 120/64 05/04/18 09:56 O2 Sat by Pulse Oximetry (%) 100 05/03/18 20:53 Constitutional: Yes: Calm Cardiovascular: Yes: Regular Rate and Rhythm, Murmur (systolic murmur), S1, S2 Respiratory: Yes: CTA Bilaterally Gastrointestinal: Yes: Normal Bowel Sounds, Soft Edema: No Neurological: Yes: Alert, Oriented Labs: CBC, BMP 05/02/18 05:30 05/02/18 05:30 Discharge Summary Reason For Visit: CHRONIC OBSTRUCTIVE ASTHMA W/ EXACERBATION Current Active Problems Acute exacerbation of COPD with asthma (Acute) Exacerbation of asthma (Acute) GERD (gastroesophageal reflux disease) (Acute) H/O cardiac arrhythmia (Acute) PUD (peptic ulcer disease) (Acute) Pacemaker (Acute) URI (upper respiratory infection) (Acute) Other Procedures: echo show left ventricle hypertrophy and ejection fraction is normal Hospital Course: worsening shortness of breath and wheezing for 3 days PCP: Dr. Ambriz Refrigerating Oiler: Dr. Bertrand HISTORY OF PRESENT ILLNESS: 78 year old female with history of COPD, hyperlipidemia, GERD, permanent pacemaker implantation and total right knee replacemnet s/p bone cancer who presents with worsening shortness of breath and significant wheezing for 3 days. On arrival to the ER she was hypoxic. Venous blood gas revealed a CO2 - 48.9, HCO3 -28.9, and Po2 - 30.3. Hypoxemia and dyspnea has improved with oxygen therapy by nasal canula. She was given one dosage of IV Azithromycin . She denied orthopnea or paraoxysmal nocturnal dyspnea. Labs notable for a normal BNP and elevated esonophils. ER course was notable for: (1)COPD Excacerbation- Improved with oxygen therapy, duoned,i antobiotic, Recent Travel:Denies PAST MEDICAL HISTORY: COPD Hyperlipidemia PAST SURGICAL HISTORY: Pacemaker implantation Total right knee replacement S/P bone cancer admitted with PO abx and iv steroids now change to po steroids with taper completed po abx course seen by pulm to get repeat chest ct as outpatient to come for pulm rehab and out patient PFT for sleep apnea Condition: Improved - Instructions Diet, Activity, Other Instructions: repeat chest CT scan in 3 months to look at lung nodule prednisone 40mg po daily for 2 days then 30mg for 2 days,20mg po days then 10mg 2 days then stop FU with Dr Hunter logistics manager on monday Referrals: Bandar Ambriz MD [Primary Care Provider] - Disposition: HOME - Home Medications Comprehensive Discharge Medication List: Ambulatory Orders Albuterol Sulfate Inhaler - [Ventolin HFA Inhaler -] 1 - 2 inh PO QID PRN #2 inhaler 12/08/15 Budesonide/Formeterol Fumarate [SYMBICORT 160/4.5mcg -] 1 puff IH BID #1 inhaler 12/08/15 Zafirlukast 10 mg PO AM #30 tablet 12/08/15 Famotidine 20 mg PO DAILY 05/01/18
[2018-05-04 13:44] VITALS: BP 127/72; TEMP 98.2
== END 2018-05-04 17:24 | disposition home or self-care (01) | DRG 189 ==
LOC: JER 14:17 → JERBED 19:15 → OBSVTOIN 20:01 → J4W 21:44
PROVIDERS: ADMIT Internal Medicine; ATTEND Family Medicine
DX: J96.01 Acute respiratory failure with hypoxia (principal); J44.1 Chronic obstructive pulmonary disease with (acute) exacerbation; J45.901 Unspecified asthma with (acute) exacerbation; J44.0 Chronic obstructive pulmonary disease with (acute) lower respiratory infection; J20.9 Acute bronchitis, unspecified; K21.9 Gastro-esophageal reflux disease without esophagitis; E78.5 Hyperlipidemia, unspecified; J06.9 Acute upper respiratory infection, unspecified; Z95.0 Presence of cardiac pacemaker
CPT/HCPCS: 36415; 71046-TC-FY; 71250-TC; 80048; 80053; 82803; 83880; 84484; 85025; 93005; 93010; 93306-TC; 94640; 97116-GP; 97161-GP; 99284-25; G0378

== ENCOUNTER 2021-03-15 06:04 | Inpatient (IN) | payer OTHER ==
[2021-03-09 12:36] VITALS: BMI 36.1
[2021-03-15] MEDS ORDERED: MIDAZOLAM HCL 2 MG/2 ML SINGLE DOSE VIAL ONE (07:03)
[2021-03-15] MEDS ORDERED: BUPIVACAINE LIPOSOME/PF (EXPAREL) 266 MG/20 ML VIAL ONE (07:03)
[2021-03-15] MEDS ORDERED: BUPIVACAINE HCL/PF 0.5% (5 MG/ML) 30 ML VIAL IJ ONE (07:03)
[2021-03-15] MEDS ORDERED: MAG HYDROX/AL HYDROX/SIMETH 30 ML UNIT-DOSE CUP PO PRN (07:08)
[2021-03-15] MEDS ORDERED: ONDANSETRON 4 MG/2 ML VIAL IVPUSH PRN (07:08)
[2021-03-15] MEDS ORDERED: MAGNESIUM HYDROX 2400MG/30ML ORAL SUSPENSION 30 ML CUP PO PRN (07:08)
[2021-03-15] MEDS ORDERED: LACTATED RINGERS SOLUTION 1,000 ML IV SCH (07:15)
[2021-03-15] MEDS ORDERED: VANCOMYCIN 1,000 MG VIAL (RESTRICTED TO ID ONLY) ONE ×2 (07:17→08:27)
[2021-03-15] MEDS ORDERED: TRANEXAMIC ACID 1000 MG/10 ML VIAL ONE ×2 (07:17→08:30)
[2021-03-15] MEDS ORDERED: PROPOFOL 20 ML ONE ×2 (07:24)
[2021-03-15] MEDS ORDERED: ROCURONIUM BROMIDE 50 MG/5 ML SYRINGE ONE (07:24)
[2021-03-15] MEDS ORDERED: SUCCINYLCHOLINE CHLORIDE 200 MG/10 ML SYRINGE ONE (07:24)
[2021-03-15] MEDS ORDERED: ceFAZolin SODIUM 1 GM VIAL ONE ×3 (08:30→21:26)
[2021-03-15] MEDS ORDERED: DEXAMETHASONE SOD PHOSPHATE 4 MG/1 ML VIAL ONE (08:38)
[2021-03-15] MEDS ORDERED: ONDANSETRON 4 MG/2 ML VIAL ONE (08:38)
[2021-03-15] MEDS ORDERED: ALBUTEROL SO4 HFA INHALER IH PRN (09:49)
[2021-03-15] MEDS ORDERED: GABAPENTIN 300 MG CAPSULE PO SCH (10:00)
[2021-03-15] MEDS ORDERED: ZAFIRLUKAST 10 MG PO SCH (10:00)
[2021-03-15] MEDS: ACETAMINOPHEN 1000 MG/100 ML VIAL IVPB SCH ×3 (11:30→23:55)
[2021-03-15] MEDS ORDERED: ACETAMINOPHEN INJECTION 100 ML IVPB ONE (11:39)
[2021-03-15] MEDS ORDERED: oxyCODONE HCL 5 MG TABLET PO PRN (11:40)
[2021-03-15] MEDS ORDERED: DEXTROSE 5%-WATER - 50 ML IVPB ONE ×2 (17:18→21:26)
[2021-03-15] MEDS: CEFAZOLIN 2 GM in DEXTROSE 5%-WATER - 50 ML IVPB SCH ×2 (17:21→21:35)
[2021-03-15] MEDS: SENNOSIDES/DOCUSATE COMBO (SENNA PLUS) TABLET (UD) PO SCH ×2 (20:15→21:36)
[2021-03-15] MEDS: PANTOPRAZOLE 40 MG TABLET PO SCH (20:15)
[2021-03-15] MEDS: BUDESONIDE/FORMETEROL FUMARATE 160/4.5 mcg INHALER IH SCH ×2 (20:15→21:37)
[2021-03-15] MEDS: MULTIVITAMINS (DAILY MVI) TABLET (FP) PO SCH (20:15)
[2021-03-15] MEDS ORDERED: VANCOMYCIN 1 GM in D5W (PRE-DOCKED) 1,000 MG/250 ML IVPB ONE (20:29)
[2021-03-15] MEDS: MONTELUKAST NA 10 MG TABLET PO SCH (21:36)
[2021-03-15] MEDS: ROSUVASTATIN CA 20 MG TABLET (FP) PO SCH (21:37)
[2021-03-16] MEDS: ACETAMINOPHEN 1000 MG/100 ML VIAL IVPB SCH (06:14)
[2021-03-16 08:21] LABS: HEMATOCRIT 32.8 % (32.4-45.2); HEMOGLOBIN 10.6 GM/dl (10.7-15.3); MCHC 32.5 g/dl (32.0-36.0); MEAN CELL VOLUME 89.2 fl (80-96); MEAN PLT VOLUME 9.4 fl (7.5-11.1); PLATELET COUNT 165 10^3/uL (134-434); RBC 3.67 M/mm3 (3.60-5.2); RDW 13.8 % (11.6-15.6); WHITE BLOOD COUNT 13.8 K/mm3 (4.0-10.8)
[2021-03-16 08:22] LABS: CALCIUM 8.7 mg/dl (8.5-10); CREATININE 0.7 mg/dl (0.55-1.3)
[2021-03-16] MEDS ORDERED: PT OWN MED DRAWER 7, Y5N ONE (09:02)
[2021-03-16] MEDS: BUDESONIDE/FORMETEROL FUMARATE 160/4.5 mcg INHALER IH SCH ×2 (09:24→21:26)
[2021-03-16] MEDS: MULTIVITAMINS (DAILY MVI) TABLET (FP) PO SCH (09:24)
[2021-03-16] MEDS: PANTOPRAZOLE 40 MG TABLET PO SCH (09:24)
[2021-03-16] MEDS: SENNOSIDES/DOCUSATE COMBO (SENNA PLUS) TABLET (UD) PO SCH ×2 (09:24→21:25)
[2021-03-16] MEDS ORDERED: ASPIRIN 325 MG ENTERIC COATED TABLET (FP) PO SCH ×2 (10:00→22:00)
[2021-03-16] MEDS ORDERED: ENOXAPARIN NA (PORCINE) 40 MG/0.4 ML DISP.SYRIN SQ SCH (10:00)
[2021-03-16] MEDS ORDERED: ACETAMINOPHEN 325 MG TABLET (FP) PO SCH (18:15)
[2021-03-16] MEDS: oxyCODONE HCL 5 MG TABLET PO PRN (18:33)
[2021-03-16] MEDS: ACETAMINOPHEN 500 MG TABLET (FP) PO SCH (18:33)
[2021-03-16] MEDS: MONTELUKAST NA 10 MG TABLET PO SCH (21:24)
[2021-03-16] MEDS: ROSUVASTATIN CA 20 MG TABLET (FP) PO SCH (21:24)
[2021-03-17] MEDS: ACETAMINOPHEN 500 MG TABLET (FP) PO SCH ×4 (02:22→18:13)
[2021-03-17] MEDS: oxyCODONE HCL 5 MG TABLET PO PRN ×2 (07:12→21:26)
[2021-03-17] MEDS ORDERED: ENOXAPARIN NA (PORCINE) 30 MG/0.3 ML DISP.SYRIN SQ SCH (10:00)
[2021-03-17] MEDS: SENNOSIDES/DOCUSATE COMBO (SENNA PLUS) TABLET (UD) PO SCH ×2 (10:54→21:26)
[2021-03-17] MEDS: PANTOPRAZOLE 40 MG TABLET PO SCH (10:54)
[2021-03-17] MEDS: ENOXAPARIN NA (PORCINE) 40 MG/0.4 ML DISP.SYRIN SQ SCH (10:54)
[2021-03-17] MEDS: MULTIVITAMINS (DAILY MVI) TABLET (FP) PO SCH (10:54)
[2021-03-17] MEDS: BUDESONIDE/FORMETEROL FUMARATE 160/4.5 mcg INHALER IH SCH ×2 (10:55→21:25)
[2021-03-17] MEDS: MONTELUKAST NA 10 MG TABLET PO SCH (21:26)
[2021-03-17] MEDS: ROSUVASTATIN CA 20 MG TABLET (FP) PO SCH (21:26)
[2021-03-18] MEDS: ACETAMINOPHEN 500 MG TABLET (FP) PO SCH ×2 (05:17→06:19)
[2021-03-18] MEDS: oxyCODONE HCL 5 MG TABLET PO PRN (05:17)
[2021-03-18] MEDS: ENOXAPARIN NA (PORCINE) 40 MG/0.4 ML DISP.SYRIN SQ SCH (09:16)
[2021-03-18] MEDS: BUDESONIDE/FORMETEROL FUMARATE 160/4.5 mcg INHALER IH SCH (09:26)
[2021-03-18] MEDS: SENNOSIDES/DOCUSATE COMBO (SENNA PLUS) TABLET (UD) PO SCH (09:26)
[2021-03-18] MEDS: PANTOPRAZOLE 40 MG TABLET PO SCH (09:26)
[2021-03-18] MEDS: MULTIVITAMINS (DAILY MVI) TABLET (FP) PO SCH (09:26)
[2021-03-18 10:18] VITALS: BP 120/48; PULSE 67; TEMP 98
== END 2021-03-18 11:07 | disposition home or self-care (01) | DRG 483 ==
LOC: FM/S 06:04
PROVIDERS: ADMIT Orthopaedic Surgery; ATTEND Nurse Practitioner Acute Care
PROC: 0RPK0JZ Removal of Synthetic Substitute from Left Shoulder Joint, Open Approach (ICD-10-PCS; 2021-03-15)
PROC: 0LS40ZZ Reposition Left Upper Arm Tendon, Open Approach (ICD-10-PCS; 2021-03-15)
PROC: 0RRK00Z Replacement of Left Shoulder Joint with Reverse Ball and Socket Synthetic Substitute, Open Approach (ICD-10-PCS; principal; 2021-03-15 08:44)
DX: M19.012 Primary osteoarthritis, left shoulder (principal); J44.9 Chronic obstructive pulmonary disease, unspecified; E78.5 Hyperlipidemia, unspecified; M75.22 Bicipital tendinitis, left shoulder; Z85.89 Personal history of malignant neoplasm of other organs and systems; I10 Essential (primary) hypertension; I48.0 Paroxysmal atrial fibrillation; M75.102 Unspecified rotator cuff tear or rupture of left shoulder, not specified as traumatic; Z96.652 Presence of left artificial knee joint; Z95.0 Presence of cardiac pacemaker
CPT/HCPCS: 36415; 73030-TC-LT-FY; 80048; 85027; 88305-TC; 88311-TC; 94010; 94760; 97010-GP; 97116-GP; 97162-GP; J0131

== ENCOUNTER 2021-04-08 21:12 | Emergency (ER) | payer OTHER ==
[2021-04-08 21:32] VITALS: BMI 36.1
[2021-04-08 21:54] VITALS: BP 136/73; PULSE 64; TEMP 98.7
[2021-04-08 23:25] LABS: ALBUMIN 3.9 g/dl (3.4-5.0); BILIRUBIN,TOTAL 0.6 mg/dl (0.2-1); CALCIUM 9.4 mg/dl (8.5-10); CREATININE 0.6 mg/dl (0.55-1.3)
[2021-04-08 23:28] LABS: EPITHELIAL CELLS FEW /hpf; URINE MUCUS 1+
[2021-04-09] LABS: EOS % 3.3 % (0-4.5); HEMATOCRIT 36.4 % (32.4-45.2); HEMOGLOBIN 12.1 GM/dL (10.7-15.3); MCH 29.3 pg (25.7-33.7); MCHC 33.3 g/dl (32.0-36.0); MEAN PLT VOLUME 9.6 fl (7.5-11.1); MONO % 9.7 % (3.8-10.2); PLATELET COUNT 219 10^3/uL (134-434); RBC 4.14 M/mm3 (3.60-5.2); RDW 14.9 % (11.6-15.6); WHITE BLOOD COUNT 9.4 K/mm3 (4.0-10.0)
[2021-04-09 00:19] LABS: N-TERMINAL BNP 369.5 pg/ml (5-450)
== END 2021-04-09 01:27 | disposition home or self-care (01) ==
LOC: FER 21:12
DX: R60.0 Localized edema (principal); I87.2 Venous insufficiency (chronic) (peripheral)
CPT/HCPCS: 36415; 71045-TC-FY; 80053; 81003; 81015; 82550; 83880; 84443; 84484; 85025; 93005; 93970-TC; 99285-25

== ENCOUNTER 2021-09-21 15:19 | Emergency (ER) | payer OTHER ==
[2021-09-21 15:44] VITALS: TEMP 98.7; BMI 35.5
[2021-09-21] MEDS ORDERED: morphine CARPU-JECT 4 MG/1 ML DISP.SYRIN IVPUSH ONE (16:05)
[2021-09-21 16:52] LABS: HEMOGLOBIN 13.8 G/dL (10.7-15.3); MCH 30.1 pg (25.7-33.7); MCHC 34.5 g/dl (32.0-36.0); MEAN CELL VOLUME 87.1 fl (80-96); MEAN PLT VOLUME 9.4 fl (7.5-11.1); PLATELET COUNT 199.1 10^3/uL (134-434); RBC 4.59 10^6/uL (3.60-5.2); RDW 15.8 % (11.6-15.6); WHITE BLOOD COUNT 8.8 10^3/uL (4.0-10.8)
[2021-09-21] MEDS ORDERED: LIDOCAINE 5% TOPICAL PATCH TP ONE (16:52)
[2021-09-21] MEDS ORDERED: METHOCARBAMOL 500 MG TABLET PO ONE (16:52)
[2021-09-21 16:59] LABS: ALBUMIN 3.8 g/dl (3.4-5.0); BILIRUBIN,TOTAL 0.9 mg/dl (0.2-1); CALCIUM 9.6 mg/dl (8.5-10); CREATININE 0.7 mg/dl (0.55-1.3); TOT PROT 6.8 g/dl (6.4-8.2)
[2021-09-21 17:08] LABS: PLATELET ESTIMATE ADEQUATE
[2021-09-21] MEDS ORDERED: morphine SULFATE 4 MG/ML VIAL ONE (17:17)
[2021-09-21] MEDS ORDERED: METHOCARBAMOL 500 MG TABLET ONE (17:18)
[2021-09-21] MEDS ORDERED: LIDOCAINE 5% TOPICAL PATCH ONE (18:31)
[2021-09-21 19:43] VITALS: BP 136/81; PULSE 66
[2021-09-21] MEDS ORDERED: LIDOCAINE PATCH REMOVAL MC SCH (22:00)
== END 2021-09-21 20:13 | disposition home or self-care (01) ==
LOC: FER 15:19
PROC: 3E033NZ Introduction of Analgesics, Hypnotics, Sedatives into Peripheral Vein, Percutaneous Approach (ICD-10-PCS; principal; 2021-09-21)
DX: R10.9 Unspecified abdominal pain (principal)
CPT/HCPCS: 36415; 74177-TC; 80053; 81003; 81015; 83690; 83735; 85025; 87086; 93005; 99285-25; Q9967